=== PATIENT | female | born 1945 | race Caucasian/White ===

== ENCOUNTER 2018-05-19 06:29 | Emergency (ER) | payer MEDICARE, BC, SELFPAY ==
[2018-05-19 06:42] VITALS: BP 148/84; PULSE 73; RESP 16; TEMP 36.4; O2SAT 99; BMI 23.3
[2018-05-19 06:53] LABS: Bacteria Urine None Seen
[2018-05-19] MEDS: cephALEXin 250 MG CAPSULE 500 MG PO (07:00)
[2018-05-19 07:03] LABS: Culture Indicated Urine Specimen Cultured; RBC Urine 30-100/HPF (0-5/HPF); Squamous Epithelial Cell Urine 0-1 /HPF; WBC Urine 30-100/HPF (0-5/HPF)
--- NOTE | 2018-05-19 07:12 | ED_ITS ---
HPI - Female Genitourinary General Chief complaint: Urogenital-Female Stated complaint: UTI Time Seen by Provider: 05/19/18 06:35 Source: patient and family Mode of arrival: ambulatory Limitations: no limitations History of Present Illness HPI Narrative: 73-year-old female with history of UTI presents to the emergency department with chief complaint a few days of burning, frequency and urgency with urination, all symptoms consistent with prior urinary tract infections. She denies systemic findings such as fever, back pain or vomiting. She denies vaginal bleeding or discharge MD Complaint: dysuria and UTI Onset (ago): minute(s) Female Urogenital Radiation: Suprapubic Severity: mild Quality: Burning Duration: constant Exacerbating factors: urination Urinary symptoms: Difficulty Urinating, Dysuria, Foul Smelling Urine, Frequency , Hematuria and Urgency Related Data Home Medications Medication Instructions Recorded Confirmed AMINOBENZOIC ACID/BIOTIN/CA (#B 1 cap PO Q DAY #0 10/11/11 COMPLEX) BENZONATATE (TESSALON PERLES~) 100 mg PO PRN #0 10/11/11 CA PANTOTHENATE/FOLIC ACID/VIT 1 tab PO Q DAY #0 10/11/11 (MULTIVITAMIN) Hydrochlorothiazide/Triamter 1 cap PO Q DAY #0 10/11/11 (#DYAZIDE 25 MG-37.5 MG) LACTOBACILLUS ACIDOPHILUS 1 cap PO Q DAY #0 10/11/11 (#ACIDOPHILUS) TRIAMCINOLONE ACETONIDE (NASACORT 120 spray INTRANASAL BID #0 10/11/11 AQ) VITAMIN D (Vitamin D3) 1,000 unit PO QDAY #0 10/11/11 dicyclomine 20 mg PO QID PRN #0 10/11/11 levothyroxine [Synthroid] 0.175 mg PO Q DAY #0 10/11/11 lysine [L-Lysine] 500 mg PO Q DAY #0 10/11/11 omeprazole 40 mg PO BID #0 10/11/11 ranitidine HCl [Zantac] 300 mg PO HS #0 10/11/11 [PROBIOTICS] #0 04/23/17 Previous Rx's Medication Instructions Recorded nitrofurantoin monohyd/m-cryst 100 mg PO Q12H #14 bot 04/23/17 [Macrobid] phenazopyridine [Pyridium] 100 mg PO TID #10 tab 04/23/17 sulfamethoxazole-trimethoprim 1 tab PO BID #6 tab 04/26/17 estradiol 1 mg tablet 1 mg PO QDAY #90 tab 03/19/18 cephalexin [Keflex] 500 mg PO QID 14 Days #56 cap 05/19/18 Allergies Allergy/AdvReac Type Severity Reaction Status Date / Time codeine [CODEINE] Allergy Unknown Verified 05/19/18 06:42 Review of Systems Review of Systems All systems reviewed & are unremarkable except as noted in HPI and below Constitutional Denies chills, Denies fever(s), Denies lethargy and Denies weakness Eyes Denies change in vision, Denies eye discharge, Denies irritation and Denies loss of vision ENT Ears, Nose, Mouth, and Throat: Denies change in voice, Denies neck pain and Denies sore throat Cardiovascular Denies chest pain, Denies irregular heart rhythm, Denies lightheadedness, Denies palpitations, Denies dyspnea, Denies dyspnea on exertion and Denies orthopnea Respiratory Denies cough, Denies dyspnea, Denies dyspnea on exertion and Denies wheezing Gastrointestinal Gastrointestinal: Denies abdominal pain, Denies change in bowel habits, Denies diarrhea, Denies nausea and Denies vomiting Genitourinary Denies hematuria, Denies flank pain and Reports urinary urgency Musculoskeletal Denies neck pain Integumentary/Breasts Denies pruritus, Denies erythema, Denies rash and Denies wounds Neurologic Denies confusion, Denies loss of vision and Denies weakness Psychiatric Denies anxiety, Denies confusion, Denies depression, Denies homicidal ideation and Denies suicidal ideation Endocrine Denies palpitations Hematologic/Lymphatic Denies easy bruising Allergic/Immunologic Denies wheezing PFSH Surgical History History of bladder suspension procedure Status post colonoscopy (09/20/14) Status post vaginal hysterectomy Social History Smoking Status: Never smoker Exam Narrative Exam Narrative: GEN: AOx3 and in mild distress EYES: Pupils are equal, round, and reactive to light and accommodation. Extraoccular muscles are intact bilaterally. There is no subconjunctival hemorrhage or exudate. CHEST: Lungs are clear to auscultation bilaterally and free of wheezes, rales, or rhonchi. Heart rate is regular rhythm, there are no murmurs, clicks, rubs, or gallops. There is no chest wall tenderness. ABD: Abdomen is soft and nontender. There is no guarding or rebound. Bowel sounds are normal in all 4 quadrants. There is no mass or organomegaly. EXT: Full painless ROM of all extremities with no loss of sensation or strength. SKIN: Warm, pink, and dry. No erythema or rash Initial Vital Signs Initial Vital Signs: Vital Signs Temperature 97.6 F 05/19/18 06:42 Pulse Rate 73 05/19/18 06:42 Respiratory Rate 16 05/19/18 06:42 Blood Pressure 148/84 H 05/19/18 06:42 Pulse Oximetry 99 05/19/18 06:42 Course Orders Ordered: ED Orders 05/19/18 06:40 Urine Culture Stat Urine Microscopic Stat Discontinued Medications Cephalexin HCl (Keflex) 500 mg PO NOW ONE Stop: 05/19/18 06:57 Last Admin: 05/19/18 07:00 Dose: 500 mg Vital Signs - 8 hr 05/19/18 06:42 Temperature 97.6 F Pulse Rate 73 Respiratory Rate 16 Blood Pressure 148/84 H Pulse Oximetry 99 MDM - Female Genitourinary Lab Data Lab Results 05/19/18 Range/Units 06:40 Urine RBC 30-100/hpf H (0-5/HPF) Urine WBC 30-100/hpf H (0-5/HPF) Ur Squamous Epith Cells 0-1 /hpf Urine Bacteria None seen (None) Ur Culture Indicated? Specimen cultured Micro UA Comment Not Reportable Discharge Plan Departure Patient Disposition: Home Clinical Impression: Urinary tract infection Discharge Date/Time: 05/19/18 07:09 Instructions: DI for Urinary Tract Infection (UTI) Activity Restrictions/Additional Instructions: *You have been diagnosed with [acute urinary tract infection ] *What to do: *Take medications as directed: Your prescription has been electronically transmitted to [facility] at your request. Take your antibiotics for least 3-5 days but if her symptoms have completely improved at that point he did not need to continue *Follow up with your primary care provider in 2-3 days, call for an appointment. Let them know you were seen in the Emergency Department and that we ask that you be seen in follow up *Return to ER if you should have any new, worsening or concerning symptoms Prescriptions: New cephalexin [Keflex] 500 mg capsule 500 mg PO QID 14 Days Qty: 56 RF: 0 No Action omeprazole 40 MG capsule,delayed release(DR/EC) 40 mg PO BID Qty: 0 RF: 0 CA PANTOTHENATE/FOLIC ACID/VIT (MULTIVITAMIN) 1 tab PO Q DAY Qty: 0 RF: 0 AMINOBENZOIC ACID/BIOTIN/CA (#B COMPLEX) 1 cap PO Q DAY Qty: 0 RF: 0 lysine [L-Lysine] 500 MG tablet 500 mg PO Q DAY Qty: 0 RF: 0 LACTOBACILLUS ACIDOPHILUS (#ACIDOPHILUS) 1 cap PO Q DAY Qty: 0 RF: 0 levothyroxine [Synthroid] 175 MCG tablet 0.175 mg PO Q DAY Qty: 0 RF: 0 Hydrochlorothiazide/Triamter (#DYAZIDE 25 MG-37.5 MG) 1 cap PO Q DAY Qty: 0 RF: 0 dicyclomine 20 MG tablet 20 mg PO QID PRNQty: 0 RF: 0 TRIAMCINOLONE ACETONIDE (NASACORT AQ) 120 spray Intranasal BID Qty: 0 RF: 0 ranitidine HCl [Zantac] 150 MG tablet 300 mg PO HS Qty: 0 RF: 0 BENZONATATE (TESSALON PERLES~) 100 mg PO PRN Qty: 0 RF: 0 VITAMIN D (Vitamin D3) 1,000 unit PO QDAY Qty: 0 RF: 0 [PROBIOTICS] Qty: 0 RF: 0 phenazopyridine [Pyridium] 100 MG tablet 100 mg PO TID Qty: 10 RF: 0 nitrofurantoin monohyd/m-cryst [Macrobid] 100 MG capsule 100 mg PO Q12H Qty: 14 RF: 0 sulfamethoxazole-trimethoprim 800 MG/160 MG tablet 1 tab PO BID Qty: 6 RF: 0 estradiol 1 mg tablet 1 mg PO QDAY Qty: 90 RF: 0
== END 2018-05-19 07:09 | disposition home or self-care (01) ==
PROVIDERS: Emergency Provider Emergency Medicine
DX: N39.0 Urinary tract infection, site not specified (principal)
CPT/HCPCS: 81003; 81015; 87077; 87086; 87186; 99282; 99283

== ENCOUNTER → 2018-06-07 16:38 | Outpatient (CLI) | payer MEDICARE, BC, SELFPAY ==
[2018-06-07 17:41] LABS: Add Manual Diff / Slide Review NO; Basophils Percent Auto 0.6 % (0-2); Eosinophils Percent Auto 1.2 % (2-4); Hematocrit 48.8 % (36-46); Hemoglobin 16.7 g/dL (12.0-16.0); Lymphocytes Percent Auto 25.7 % (25-40); Mean Corpuscular HGB Conc 34.3 % (30-36); Mean Corpuscular Hemoglobin 33.9 PG (26-34); Monocytes Percent Auto 8.8 % (3-14); Neutrophils Absolute Auto 5100 /uL (3000-5900); Neutrophils Percent Auto 63.7 % (50-75); Platelet Count 216 X10^3/uL (150-400); Red Blood Cell Count 4.93 X10^6/uL (4.0-5.2); Red Cell Distribution Width 13.1 % (11.6-14.8); White Blood Cell Count 8.1 X10^3/uL (4.5-11.0)
== END ==
PROVIDERS: Referring Provider Specialist; Visit Provider Specialist
DX: B34.9 Viral infection, unspecified (principal)
CPT/HCPCS: 36415; 85025; 86788; 86789; 99214

== ENCOUNTER → 2018-06-11 14:55 | Outpatient (CLI) | payer MEDICARE, BC, SELFPAY ==
[2018-06-11 16:09] LABS: BUN Creatinine Ratio 28.2 (6-22); Blood Urea Nitrogen 31 mg/dL (7-17); Estimated Glomerular Filt Rate 48.7 mL/min (>60)
== END ==
PROVIDERS: Visit Provider Specialist
DX: B34.9 Viral infection, unspecified (principal)
CPT/HCPCS: 36415; 82565; 84520

== ENCOUNTER → 2018-06-14 11:01 | Outpatient (CLI) | payer MEDICARE, BC, SELFPAY ==
--- NOTE | 2018-06-14 11:03 | DI.MRI.S_ITS ---
PROCEDURE: MR HEAD/BRAIN WO/W CON INDICATIONS: [place] ENCEPHALITIS TECHNIQUE: Noncontrast axial T1 spin echo, axial T2 fast spin echo, sagittal and axial FLAIR, coronal T2 fast spin echo, axial gradient echo, axial diffusion and ADC through the brain. After the administration of contrast, axial and coronal T1 spin echo with fat saturation through the brain. COMPARISON: [facility], CT, CT BRAIN WO CON, 08/24/2016, 11:11. FINDINGS: Image quality: Excellent. CSF spaces: Basal cisterns are patent. No extra-axial fluid collections. Ventricles are normal in size and shape. Brain: No midline shift. No intracranial bleeds or masses. No abnormal intracranial enhancement. There is cerebral volume loss for age. There is periventricular white matter chronic small vessel ischemic change. The brainstem appears normal. Diffusion-weighted images demonstrate no acute ischemic insults. No chronic ischemic insults. Normal intravascular flow voids are present. 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 When discovered in isolation, this is considered to be a developmental variant of no clinical consequence. Skull and face: Calvarial marrow is normal in signal. Orbits appear normal. Sinuses: Sinuses and mastoids appear clear. IMPRESSION: No abnormal intracranial enhancement is seen to suggest encephalitis. 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 Dictated by: Jefry Wright M.D. on 06/14/2018 at 13:23 Approved by: Jefry Wright M.D. on 06/14/2018 at 13:32
== END ==
PROVIDERS: Visit Provider Specialist
DX: A92.31 West Nile virus infection with encephalitis (principal)
CPT/HCPCS: 70553; A9579

== ENCOUNTER 2022-06-15 10:50 | Emergency (ER) | payer MEDICARE, BC, SELFPAY ==
[2022-06-15] VITALS (13 sets, daily range): BP systolic 119–152; BP diastolic 62–91; PULSE 57–72; RESP 13–98; TEMP 36.6; O2SAT 96–99; BMI 21.6
--- NOTE | 2022-06-15 10:51 | ED_ITS ---
HPI - General Adult General Chief complaint: Nausea/Vomiting/Diarrhea Stated complaint: Nausea and Dizzy 2 days Time Seen by Provider: 06/15/22 10:50 History of Present Illness HPI narrative: 77-year-old woman with history of atrial fibrillation anticoagulated on apixaban, post Whipple scheduled for CT scans and lab work at [facility] tomorrow, hypothyroidism currently with significantly suppressed TSH, presents with a complaint of the low-grade headache for a couple of weeks that is been dramatically worsen the past 48 hours associated with significant nausea, vomiting unable to eat or drink, unable to tolerate any of her pills including metoprolol and Eliquis. She complains of body aches all over. States that her neck head and back all hurt and describe it as significant musculoskeletal pain. She wants at the headache is worse when she is walking and if she standing upright the neck pain and nausea are worse. She is not describing abdominal pain, palpitations, cough, diarrhea. She does incidentally note that she has fallen a couple of times over the last number of weeks and some of those did have an associated head injury for which she did not seek additional care. She has been feeling bad enough with the nausea and vomiting that she has significantly unsteady and it is unclear if that has gotten worse beyond just the acute illness portion. Related Data Home Medications Medication Instructions Recorded Confirmed AMINOBENZOIC ACID/BIOTIN/CA (#B 1 cap PO Q DAY ##0 10/11/11 11/10/21 COMPLEX) CA PANTOTHENATE/FOLIC ACID/VIT 1 tab PO Q DAY ##0 10/11/11 11/10/21 (MULTIVITAMIN) Hydrochlorothiazide/Triamter 1 cap PO Q DAY ##0 10/11/11 11/10/21 (#DYAZIDE 25 MG-37.5 MG) TRIAMCINOLONE ACETONIDE (NASACORT 120 spray intranasal BID ##0 10/11/11 11/10/21 AQ) VITAMIN D (Vitamin D3) 1,000 unit PO QDAY ##0 10/11/11 11/10/21 dicyclomine 20 mg tablet 20 mg PO QID PRN ##0 10/11/11 11/10/21 lysine 500 mg tablet (L-Lysine) 500 mg PO Q DAY ##0 10/11/11 11/10/21 mecobalamin (vitamin B12) 5,000 mcg PO 10/24/18 02/16/22 mcg disintegrating tablet benzonatate 100 mg capsule 100 mg PO BID PRN 08/19/19 11/10/21 (Tessalon Perles) [id number] See Rx Instructions PO .COMPLEX 08/19/19 11/10/21 [Pancreatic Enzyme] pantoprazole PO 08/19/19 11/10/21 prochlorperazine Edisylate PO 08/19/19 11/10/21 [Compazine] levothyroxine 175 mcg tablet 200 mcg PO Q DAY #0 tabs 09/07/20 11/10/21 (Synthroid) alendronate [Fosamax] PO 11/10/21 11/10/21 apixaban 5 mg tablet (Eliquis) 5 mg PO BID 11/10/21 11/10/21 duloxetine 60 mg capsule,delayed 60 mg PO DAILY 11/10/21 11/10/21 release gabapentin 400 mg capsule 400 mg PO DAILY 11/10/21 11/10/21 metoprolol succinate 25 mg 12.5 mg PO DAILY 11/10/21 11/10/21 tablet,extended release 24 hr Previous Rx's Medication Instructions Recorded estradiol 1 mg tablet See Rx Instructions .Route 09/13/21 .COMPLEX #90 tabs estradiol 0.01% (0.1 mg/gram) 1 g vaginal 2XW Vaginal atrophy 11/10/21 vaginal cream #42.5 grams ondansetron 4 mg disintegrating 4 mg PO Q8H PRN nausea and 06/15/22 tablet vomiting #20 tabs Allergies Allergy/AdvReac Type Severity Reaction Status Date / Time codeine [CODEINE] Allergy Unknown Verified 11/10/21 11:24 Review of Systems Review of Systems Narrative: Remainder of complete review of systems is otherwise unremarkable except for that included in the HPI. Patient History Medical History (Updated 06/15/22 @ 16:41 by Rajwinder Mcleod MD) Atrial fibrillation Pancreatic cancer (~08/2018) Surgical History History of bladder suspension procedure Status post colonoscopy (09/20/14) Status post vaginal hysterectomy (~1994) Social History Smoking Status: Never smoker Smoking Status: Never smoker alcohol intake frequency: a few times a week Substance Use Type: does not use Exam Initial Vital Signs Initial Vital Signs: Vital Signs Temperature 97.8 F 06/15/22 11:03 Pulse Rate 66 06/15/22 11:03 Respiratory Rate 16 06/15/22 11:03 Blood Pressure 152/74 H 06/15/22 11:03 Pulse Oximetry 97 06/15/22 11:03 Oxygen Delivery Method 06/15/22 11:03 General: Pale appearing, in mild distress. Able to give a complete and coherent history. Well-nourished well-developed HEENT: Moist mucous membranes, normal sclera with reactive pupils, Neck: Mild JVD, supple with midline cervical spine tenderness to palpation and bilateral muscle spasm into the trapezius muscles Respiratory: Lungs are clear to auscultation, no wheezing no rales no rhonchi. Full and symmetrical air movement Cardiac: Regular rate and rhythm no murmurs no bruits Abdomen: Soft, diffusely tender without rebound, good bowel tones, no flank pain Skin: Warm and dry, no rashes Neurologic: Grossly neurologically intact with no obvious asymmetries or abnormalities Extremities: No trauma, well perfused Psych: Cooperative, appropriate insight and affect Course Orders Ordered: ED Orders 06/15/22 10:55 CEA [Carcinoembryonic Antigen] Stat Cancer (Carbohydrate) Ag 19-9 Stat Complete Blood Count AUTO DIFF Stat Comprehensive Metabolic Panel Stat Lipase Stat 06/15/22 11:53 EKG-12 Lead Stat 06/15/22 12:11 CT cervical spine wo con Stat CT chest w con Stat CT head/brain wo con Stat Vital Signs Vital signs: Vital Signs - 8 hr 06/15/22 11:03 06/15/22 12:37 06/15/22 12:35 Temperature 97.8 F Pulse Rate 66 62 62 Respiratory Rate 16 98 H 17 Blood Pressure 152/74 H 147/67 H Pulse Oximetry 97 98 97 Oxygen Delivery Method Room Air Room Air 06/15/22 13:00 06/15/22 13:00 06/15/22 13:30 Temperature Pulse Rate 57 L 72 Respiratory Rate 15 27 H Blood Pressure 151/71 H Pulse Oximetry 98 96 Oxygen Delivery Method 06/15/22 13:31 06/15/22 13:31 06/15/22 14:00 Temperature Pulse Rate 70 Respiratory Rate 29 H Blood Pressure 119/63 139/63 Pulse Oximetry 96 Oxygen Delivery Method 06/15/22 14:00 06/15/22 14:30 06/15/22 14:30 Temperature Pulse Rate 62 63 Respiratory Rate 16 13 Blood Pressure 127/62 Pulse Oximetry 98 97 Oxygen Delivery Method 06/15/22 15:00 06/15/22 15:00 06/15/22 15:30 Temperature Pulse Rate 61 Respiratory Rate 16 Blood Pressure 138/65 136/91 H Pulse Oximetry 98 Oxygen Delivery Method 06/15/22 15:30 Temperature Pulse Rate 61 Respiratory Rate Blood Pressure Pulse Oximetry 98 Oxygen Delivery Method Medical Decision Making Lab Data Result diagrams: 06/15/22 10:55 06/15/22 10:55 Labs: Lab Results 06/15/22 06/15/22 06/15/22 Range/Units 10:55 10:55 10:55 WBC 7.6 (4.5-11.0) X10^3/uL RBC 4.43 (4.0-5.2) X10^6/uL Hgb 15.3 (12.0-16.0) g/dL Hct 45.2 (36-46) % MCV 102.1 H (80-100) fL MCH 34.6 H (26-34) PG MCHC 33.8 (30-36) % RDW 14.4 (11.6-14.8) % Plt Count 136 L (150-400) X10^3/uL Neut % (Auto) 60.3 (50-75) % Lymph % (Auto) 28.6 (25-40) % Mora % (Auto) 7.9 (3-14) % Eos % (Auto) 2.7 (2-4) % Baso % (Auto) 0.5 (0-2) % Neut # (Auto) 4600 (8479-5197) /uL Lymph # (Auto) 2200 (5193-7726) /uL Mora # (Auto) 600 (0-900) /uL Eos # (Auto) 200 (0-450) /uL Baso # (Auto) 0 (0-100) /uL Sodium 138 (137-145) mmol/L Potassium 4.1 (3.4-5.1) mmol/L Chloride 103 (98-107) mmol/L Carbon Dioxide 26 (22-32) mmol/L BUN 14 (7-17) mg/dL Creatinine 0.96 (0.52-1.04) mg/dL Estimated GFR > 60 (>60) mL/min BUN/Creatinine Ratio 14.6 (6-22) Glucose 124 H (80-110) mg/dL Calcium 9.2 (8.4-10.2) mg/dL Total Bilirubin 0.8 (0.2-1.3) mg/dL AST 56 H (14-36) IU/L ALT 40 H (<35) IU/L Alkaline Phosphatase 100 (38-126) U/L Total Protein 8.0 (6.3-8.2) g/dL Albumin 4.6 (3.5-5.0) g/dL Globulin 3.4 (1.7-4.1) g/dL Albumin/Globulin Ratio 1.4 (1.0-2.8) Lipase 14 L (23-300) U/L Carcinoembryonic Ag 7.3 H (0.1-3.0) ng/mL Urine Dip Bedside Urine Glucose Negative Bedside Urine Bilirubin - Negative Bedside Urine Ketone - Negative Urine Specific [place] 1.010 Bedside Urine Occult Blood - Negative Bedside Urine pH 6.0 Bedside Urine Protein - Negative Bedside Urine Urobilinogen - Negative Bedside Urine Nitrite - Negative Bedside Urine Leukocytes - Negative Esterase Point of care testing: Urine Dip Bedside Urine Glucose Negative Bedside Urine Bilirubin - Negative Bedside Urine Ketone - Negative Urine Specific [place] 1.010 Bedside Urine Occult Blood - Negative Bedside Urine pH 6.0 Bedside Urine Protein - Negative Bedside Urine Urobilinogen - Negative Bedside Urine Nitrite - Negative Bedside Urine Leukocytes - Negative Esterase Imaging Data CT scan - head: Radiologist's Impression: FINDINGS:? Image quality:? Excellent.? ? CSF spaces:? Basal cisterns are patent.? No extra-axial fluid collections.? Ventricles are normal in size and shape.? 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 ? Brain:? No midline shift.? No intracranial masses or hemorrhage.? Judge-white matter interface is normal.? ? Skull and face:? Calvarium and visualized facial bones are intact, without suspicious lesions.? ? Sinuses:? Left sphenoid sinus opacification.? Prior left maxillary sinus surgery ? IMPRESSION:? ? Atrophy and chronic ischemic change without intracranial hemorrhage or mass effect ? Left sphenoid mucosal sinus disease ? ? Approved by: Jeffry Cha M.D. on 06/15/2022 at 12:05? CT scan - chest: Radiologist's Impression: INDINGS:? Image quality:? Excellent.? ? Lungs and pleura:? No acute air space opacities.? No pleural effusions or pneumothorax.? Central and peripheral airways are patent and normal in caliber.? ? Mediastinum:? Heart size is normal.? No pericardial effusion.? Pretracheal node measures 1.4 x 1.0 cm? Thoracic aorta and central pulmonary arteries are normal in size.? Esophagus is normal in caliber.? No hiatal hernia.? ? Bones and chest wall:? No suspicious bony lesions.? No vertebral body compression fractures.? No axillary or supraclavicular adenopathy by size criteria.? Thyroid gland unremarkable.? Right-sided Port-A-Cath in place .? And convex right thoracic scoliosis ? Abdomen:? Visualized upper abdominal solid organs appear normal.? Upper abdominal bowel loops are normal in caliber.? ? IMPRESSION:? ? No CT evidence pulmonary nodules small pretracheal mediastinal node measures 1 cm in short axis ? Unremarkable CT chest without fracture or evidence of traumatic injury ? ? ? Approved by: Jeffry Cha M.D. on 06/15/2022 at 12:20? CT - cervical spine: Radiologist's Impression: FINDINGS:? Image quality:? Excellent.? ? Bones:? No fractures or dislocations.? Visualized superior ribs are intact.? Di sc space narrowing and uncovertebral joint arthropathy noted particularly at C4-5 and C5- 6 with grade 1 anterior degenerative spondylolisthesis at C4-5.? Craniovertebral relationships are normal. ? Soft tissues:? Prevertebral soft tissues are normal in thickness.? No paravertebral hematomas.? No apical pneumothoraces.? ? ? IMPRESSION:? ? Degenerative disc disease and arthropathy without fracture or traumatic malalignment ? Approved by: Jeffry Cha M.D. on 06/15/2022 at 12:07? 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 Sutherland at [facility] presents with severe headache this been present for 2 days. She does not have a history of migraine headache. She notes some vomiting with this but is not having acute visual changes, neurologic findings or deficits. There has been no fever. CT scan of the head does not show any intracranial hemorrhage. A L of fluid is significantly helped with the overall pain will also add IV Reglan Benadryl and oral Tylenol. She is scheduled to have an appointment with blood work and CT scan tomorrow in [place]. Blood work and CT scan were done here in [place]. The CT scan was electronically transmitted to [facility] and the patient is given hard copies of the blood work as well as CT scan read. At time of discharge she is feeling significantly better, there is no evidence of intracranial masses or acute meningitis. She is safe for discharge home. Will ask her to continue to follow-up with her gastroenterology surgeon at [facility]. Discharge Plan Departure Patient Disposition: Home Clinical Impression: Headache Qualifiers: Headache type: unspecified Headache chronicity pattern: acute headache Intractability: not intractable Qualified Code(s): R51.9 - Headache, unspecified Instructions: DI for Headache Activity Restrictions/Additional Instructions: Thank you for coming in today The CT scan of your brain and cervical spine did not show life-threatening pathology. Specifically no metastatic lesions and no bleeding inside your brain. To save you the drive To [place] tomorrow, we went ahead and ordered the labs and CT scan of the chest that Dr. Deras had ordered for tomorrow. I have given you copies of all of the blood work The chemistry and a CBC panels are reassuring. The CEA test is elevated at 7.3, I do not have the comparison that is available at [facility] to know if this is rising or falling. The CA 19 9 antigen has been ordered and is not yet available. The CT scan of your chest with contrast has been at least electronically transmitted to [facility] so Dr. Deras can actually reviewed the scan himself. I have also given you the radiologist interpretation of the scan. In the meantime, we use of L of fluid, IV Reglan and Benadryl as well as oral Tylenol to help with your headache. I have given you a prescription of Zofran to help with nausea should you need. The Zofran prescription was electronically transmitted to [facility] here in and [place] If you find that you are getting worse or develop any new symptoms, please feel free to return to the emergency department for further evaluation. Prescriptions: New ondansetron 4 mg tablet,disintegrating 4 mg PO Q8H PRN (Reason: nausea and vomiting) Qty: 20 0RF No Action CA PANTOTHENATE/FOLIC ACID/VIT (MULTIVITAMIN) 1 tab PO Q DAY Qty: 0 AMINOBENZOIC ACID/BIOTIN/CA (#B COMPLEX) 1 cap PO Q DAY Qty: 0 lysine [L-Lysine] 500 MG tablet 500 mg PO Q DAY Qty: 0 Hydrochlorothiazide/Triamter (#DYAZIDE 25 MG-37.5 MG) 1 cap PO Q DAY Qty: 0 dicyclomine 20 MG tablet 20 mg PO QID PRNQty: 0 TRIAMCINOLONE ACETONIDE (NASACORT AQ) 120 spray Intranasal BID Qty: 0 VITAMIN D (Vitamin D3) 1,000 unit PO QDAY Qty: 0 levothyroxine [Synthroid] 175 mcg tablet 200 mcg PO Q DAY Qty: 0 estradiol 1 mg tablet See Rx Instructions .ROUTE .COMPLEX Qty: 90 3RF Dose Instruction: Take one tablet by mouth every day for hormone replacement therapy. Rx Instructions: Take one tablet by mouth every day for hormone replacement therapy. gabapentin 400 mg capsule 400 mg PO DAILY duloxetine 60 mg capsule,delayed release(DR/EC) 60 mg PO DAILY metoprolol succinate 25 mg tablet extended release 24 hr 12.5 mg PO DAILY Eliquis 5 mg tablet 5 mg PO BID alendronate [Fosamax] PO estradiol 0.01 % (0.1 mg/gram) cream 1 g vaginal 2XW Qty: 42.5 1RF Rx Instructions: Apply externally nightly for 2 weeks then twice weekly pantoprazole PO [id number] See Rx Instructions PO .COMPLEX Rx Instructions: takes 2 with every meal, 1 with every snack PO ; prochlorperazine Edisylate PO benzonatate [Tessalon Perles] 100 mg capsule 100 mg PO BID PRN mecobalamin (vitamin B12) 5,000 mcg tablet,disintegrating PO Referrals: Ehsan Storm MD [Primary Care Provider] -
--- NOTE | 2022-06-15 11:17 | PC.NURSE ---
pt c/o of dizziness with headache. pt comfortable with bed flat.
[2022-06-15 12:00] LABS: Add Manual Diff / Slide Review NO; Basophils Absolute Auto 0 /uL (0-100); Basophils Percent Auto 0.5 % (0-2); Eosinophils Absolute Auto 200 /uL (0-450); Eosinophils Percent Auto 2.7 % (2-4); Hematocrit 45.2 % (36-46); Hemoglobin 15.3 g/dL (12.0-16.0); Lymphocytes Absolute Auto 2200 /uL (1100-4500); Lymphocytes Percent Auto 28.6 % (25-40); Mean Corpuscular HGB Conc 33.8 % (30-36); Mean Corpuscular Hemoglobin 34.6 PG (26-34); Mean Corpuscular Volume 102.1 fL (80-100); Monocytes Absolute Auto 600 /uL (0-900); Monocytes Percent Auto 7.9 % (3-14); Neutrophils Absolute Auto 4600 /uL (1500-7000); Neutrophils Percent Auto 60.3 % (50-75); Platelet Count 136 X10^3/uL (150-400); Red Blood Cell Count 4.43 X10^6/uL (4.0-5.2); Red Cell Distribution Width 14.4 % (11.6-14.8); White Blood Cell Count 7.6 X10^3/uL (4.5-11.0)
[2022-06-15 12:05] LABS: Alanine Aminotransferase 40 IU/L (<35); Albumin 4.6 g/dL (3.5-5.0); Albumin Globulin Ratio 1.4 (1.0-2.8); Alkaline Phosphatase 100 U/L (38-126); Aspartate Aminotransferase 56 IU/L (14-36); BUN Creatinine Ratio 14.6 (6-22); Bilirubin Total 0.8 mg/dL (0.2-1.3); Blood Urea Nitrogen 14 mg/dL (7-17); Calcium 9.2 mg/dL (8.4-10.2); Carbon Dioxide 26 mmol/L (22-32); Chloride 103 mmol/L (98-107); Estimated Glomerular Filt Rate > 60 mL/min (>60); Globulin 3.4 g/dL (1.7-4.1); Glucose 124 mg/dL (80-110); HEMOLYSIS 30 (0-50); Lipase 14 U/L (23-300); Potassium 4.1 mmol/L (3.4-5.1); Sodium 138 mmol/L (137-145)
--- NOTE | 2022-06-15 12:11 | DI.CT.S_ITS ---
PROCEDURE: CT CERVICAL SPINE WO CON INDICATIONS: fall, midline cervical tenderness TECHNIQUE: Noncontrast 3 mm thick sections acquired from the skull base to the T4 level. Sagittal and coronal reformats were then constructed. For radiation dose reduction, the following was used: automated exposure control, adjustment of mA and/or kV according to patient size. COMPARISON: None. FINDINGS: Image quality: Excellent. Bones: No fractures or dislocations. Visualized superior ribs are intact. Disc space narrowing and uncovertebral joint arthropathy noted particularly at C4-5 and C5-6 with grade 1 anterior degenerative spondylolisthesis at C4-5. Craniovertebral relationships are normal. Soft tissues: Prevertebral soft tissues are normal in thickness. No paravertebral hematomas. No apical pneumothoraces. IMPRESSION: Degenerative disc disease and arthropathy without fracture or traumatic malalignment Approved by: Jeffry Cha M.D. on 06/15/2022 at 12:07
--- NOTE | 2022-06-15 12:11 | DI.CT.S_ITS ---
PROCEDURE: CT HEAD/BRAIN WO CON INDICATIONS: fall, nausea vomiting, on apixaban TECHNIQUE: Noncontrast 5 mm thick angled axial sections acquired from the foramen magnum to the vertex, with coronal and sagittal reformats. For radiation dose reduction, the following was used: automated exposure control, adjustment of mA and/or kV according to patient size. COMPARISON: [facility], CT, CT HEAD WITHOUT CONTRAST, 02/23/2022, 13:01. FINDINGS: Image quality: Excellent. CSF spaces: Basal cisterns are patent. No extra-axial fluid collections. Ventricles are normal in size and shape. 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 Brain: No midline shift. No intracranial masses or hemorrhage. Judge-white matter interface is normal. Skull and face: Calvarium and visualized facial bones are intact, without suspicious lesions. Sinuses: Left sphenoid sinus opacification. Prior left maxillary sinus surgery IMPRESSION: Atrophy and chronic ischemic change without intracranial hemorrhage or mass effect Left sphenoid mucosal sinus disease Approved by: Jeffry Cha M.D. on 06/15/2022 at 12:05
--- NOTE | 2022-06-15 12:11 | DI.CT.S_ITS ---
PROCEDURE: CT CHEST W CON INDICATIONS: pulmonary nodules TECHNIQUE: After the administration of intravenous contrast, 5 mm thick sections acquired from the pulmonary apices to the posterior costophrenic angles. 1 mm axial lung, 5 mm thick coronal and sagittal reformats and 7 mm axial MIP were acquired. For radiation dose reduction, the following was used: automated exposure control, adjustment of mA and/or kV according to patient size. COMPARISON: None. FINDINGS: Image quality: Excellent. Lungs and pleura: No acute air space opacities. No pleural effusions or pneumothorax. Central and peripheral airways are patent and normal in caliber. Mediastinum: Heart size is normal. No pericardial effusion. Pretracheal node measures 1.4 x 1.0 cm Thoracic aorta and central pulmonary arteries are normal in size. Esophagus is normal in caliber. No hiatal hernia. Bones and chest wall: No suspicious bony lesions. No vertebral body compression fractures. No axillary or supraclavicular adenopathy by size criteria. Thyroid gland unremarkable. Right-sided Port-A-Cath in place . And convex right thoracic scoliosis Abdomen: Visualized upper abdominal solid organs appear normal. Upper abdominal bowel loops are normal in caliber. IMPRESSION: No CT evidence pulmonary nodules small pretracheal mediastinal node measures 1 cm in short axis Unremarkable CT chest without fracture or evidence of traumatic injury Approved by: Jeffry Cha M.D. on 06/15/2022 at 12:20
[2022-06-15 13:04] LABS: Carcinoembryonic Antigen 7.3 ng/mL (0.1-3.0)
[2022-06-15] MEDS: diphenhydrAMINE 50 MG/ML VIAL 25 MG IV (16:43)
[2022-06-15] MEDS: ACETAMINOPHEN 325 MG TABLET 975 MG PO (16:43)
[2022-06-15] MEDS: METOCLOPRAMIDE 10 MG/2 ML INJ 5 MG IV (16:44)
[2022-06-16 08:40] LABS: Cancer (Carbohydrate) Ag 19-9 < 2 U/mL (0-35)
== END 2022-06-15 17:31 | disposition home or self-care (01) ==
PROVIDERS: Emergency Provider Emergency Medicine; PCP Family Medicine
DX: R51.9 Headache, unspecified (principal); R11.2 Nausea with vomiting, unspecified; Z79.01 Long term (current) use of anticoagulants; R03.0 Elevated blood-pressure reading, without diagnosis of hypertension; I49.3 Ventricular premature depolarization
CPT/HCPCS: 36415; 70450; 71260; 72125; 80053; 81003; 82378; 83690; 85025; 86301; 93005; 93010; 96374; 96375; 99284; J1200; J2765; Q9967

== ENCOUNTER 2022-12-19 16:45 | Emergency (ER) | payer MEDICARE, BC, SELFPAY ==
[2022-12-19 16:41] VITALS: PULSE 91; O2SAT 95
[2022-12-19 16:45] VITALS: TEMP 36.6; BMI 23.0
--- NOTE | 2022-12-19 17:31 | DI.RAD.S_ITS ---
PROCEDURE: XR RIBS RT MIN 3V W CXR 1V INDICATIONS: fall. R posterior rib pain TECHNIQUE: Two views of the right ribs were acquired, along with a single view chest. COMPARISON: None. FINDINGS: Surgical changes and devices: Right chest MediPort. Cholecystectomy clips. Bones and chest wall: Minimally displaced right lateral 9th rib fracture minimally displaced right 8th rib fracture and questionable nondisplaced 7th rib fracture. Mild thoracolumbar scoliosis. No subcutaneous emphysema. Overlying soft tissues are normal.. Lungs and pleura: No pleural effusions or pneumothorax. Lungs appear clear. Mediastinum: Mediastinal contours appear normal. Heart size is normal. IMPRESSION: 1. Right lateral 8th and 9th rib fractures and possible nondisplaced right 7th fracture. 2. No radiographic evidence of underlying chest trauma. Dictated by: Sandy Martino M.D. on 12/19/2022 at 18:53 Approved by: Sandy Martino M.D. on 12/19/2022 at 18:55
--- NOTE | 2022-12-19 18:27 | ED.FALL ---
HPI - Fall <Sujit Howard PA-C - Last Filed: 12/19/22 20:35> General Chief Complaint: Fall Stated Complaint: GLF Time Seen by Provider: 12/19/22 17:48 Source: EMS Mode of arrival: EMS History of Present Illness HPI Narrative: This is a 77-year-old female presents to the emergency department due to tripping and falling due secondary to her peripheral neuropathy and landing on her right ribs. She denies any upper extremity pain, hip pain, head pain, neck pain. She did not hit her head or lose consciousness. Patient is taking apixaban b.i.d. that she is been taking as prescribed. States she is complaining primarily of right rib pain. Denies any shortness of breath or any other concerning signs or symptoms. Related Data Home Medications Medication Instructions Recorded Confirmed AMINOBENZOIC ACID/BIOTIN/CA (#B 1 cap PO Q DAY ##0 10/11/11 11/10/21 COMPLEX) CA PANTOTHENATE/FOLIC ACID/VIT 1 tab PO Q DAY ##0 10/11/11 11/10/21 (MULTIVITAMIN) Hydrochlorothiazide/Triamter 1 cap PO Q DAY ##0 10/11/11 11/10/21 (#DYAZIDE 25 MG-37.5 MG) TRIAMCINOLONE ACETONIDE (NASACORT 120 spray intranasal BID ##0 10/11/11 11/10/21 AQ) VITAMIN D (Vitamin D3) 1,000 unit PO QDAY ##0 10/11/11 11/10/21 dicyclomine 20 mg tablet 20 mg PO QID PRN ##0 10/11/11 11/10/21 lysine 500 mg tablet (L-Lysine) 500 mg PO Q DAY ##0 10/11/11 11/10/21 mecobalamin (vitamin B12) 5,000 mcg PO 07/18/18 11/10/21 mcg disintegrating tablet benzonatate 100 mg capsule 100 mg PO BID PRN 08/19/19 11/10/21 (Mimi [place]) [id number] See Rx Instructions PO .COMPLEX 08/19/19 11/10/21 [Pancreatic Enzyme] pantoprazole PO 08/19/19 11/10/21 prochlorperazine Edisylate PO 08/19/19 11/10/21 [Compazine] levothyroxine 175 mcg tablet 200 mcg PO Q DAY #0 tabs 09/07/20 11/10/21 (Synthroid) alendronate [Fosamax] PO 11/10/21 11/10/21 apixaban 5 mg tablet (Eliquis) 5 mg PO BID 11/10/21 11/10/21 duloxetine 60 mg capsule,delayed 60 mg PO DAILY 11/10/21 11/10/21 release gabapentin 400 mg capsule 400 mg PO DAILY 11/10/21 11/10/21 metoprolol succinate 25 mg 12.5 mg PO DAILY 11/10/21 11/10/21 tablet,extended release 24 hr Previous Rx's Medication Instructions Recorded estradiol 1 mg tablet See Rx Instructions .Route 09/13/21 .COMPLEX #90 tabs estradiol 0.01% (0.1 mg/gram) 1 g vaginal 2XW Vaginal atrophy 11/10/21 vaginal cream #42.5 grams ondansetron 4 mg disintegrating 4 mg PO Q8H PRN nausea and 06/15/22 tablet vomiting #20 tabs oxycodone 5 mg capsule 5 mg PO BEDTIME PRN pain rib 12/19/22 fracture #14 caps Allergies Allergy/AdvReac Type Severity Reaction Status Date / Time codeine [CODEINE] Allergy Unknown Verified 11/10/21 11:24 Review of Systems <Sujit Howard PA-C - Last Filed: 12/19/22 20:35> Review of Systems Narrative: GENERAL: Denies chills, fatigue, malaise, fever, sweats. HEENT: Denies sinus pain, ear pain, sore throat, difficulty swallowing, dizziness. RESPIRATORY: Denies dyspnea, cough, wheezing, hemoptysis, sputum. CARDIOVASCULAR: Reports right rib pain GASTROINTESTINAL: Denies nausea, vomiting, abdominal pain, diarrhea, constipation, melena. : Denies dysuria, frequency, incontinence, hematuria, urinary retention. MUSCULOSKELETAL: denies weakness, joint pain, or bony pain SKIN: Denies rash, skin lesions, or other NEUROLOGIC: Denies weakness, headache, numbness, change in speech, confusion, seizures, incoordination. PSYCHIATRIC: No concerning psychosocial issues. 12 point review of systems is negative except for those stated above Patient History <Sujit Howard PA-C - Last Filed: 12/19/22 20:35> Medical History (Updated 12/19/22 @ 19:50 by Sujit Howard PA-C) Atrial fibrillation Pancreatic cancer (~08/2018) Surgical History History of bladder suspension procedure Status post colonoscopy (09/20/14) Status post vaginal hysterectomy (~1994) Social History Smoking Status: Never smoker Smoking Status: Never smoker alcohol intake frequency: a few times a week Substance Use Type: does not use Exam <Sujit Howard PA-C - Last Filed: 12/19/22 20:35> Narrative Exam Narrative: GENERAL: Well-developed patient, in mild distress. HEAD: Atraumatic. Normocephalic. EYES: Pupils equal round and reactive. Extraocular motions intact. No scleral icterus. No injection or drainage. ENT: Nose without bleeding, purulent drainage. Throat without erythema, tonsillar hypertrophy or exudate. Airway patent. NECK: Trachea midline. Non tender CARDIOVASCULAR: Regular rate and rhythm without murmurs, gallops, or rubs. RESPIRATORY: Significant tenderness to palpation to the right ribs as well as lumbar and thoracic spine. Clear to auscultation. Breath sounds equal bilaterally. No wheezes, rales, or rhonchi. GASTROINTESTINAL: Abdomen soft, non-tender, nondistended. EXTREMITIES: No edema or joint tenderness. NEURO: AOx3. SKIN: No rash or erythema of visible areas Initial Vital Signs Initial Vital Signs: Vital Signs Pulse Rate 91 H 12/19/22 16:41 Pulse Oximetry 95 12/19/22 16:41 <Isidro Marie DO - Last Filed: 12/19/22 22:46> Initial Vital Signs Initial Vital Signs: Vital Signs Pulse Rate 91 H 12/19/22 16:41 Pulse Oximetry 95 12/19/22 16:41 Course <Sujit Howard PA-C - Last Filed: 12/19/22 20:35> Orders Ordered: ED Orders 12/19/22 17:31 XR ribs RT min 3V w CXR1V Stat 12/19/22 18:26 XR lumbar spine 2-3V Stat XR thoracic spine 3V Stat 12/19/22 19:35 RT Consult Eval and Treat NOW Vital Signs Vital signs: Vital Signs - 8 hr 12/19/22 16:45 12/19/22 16:41 12/19/22 18:30 Temperature 98 F Pulse Rate 91 H 78 Blood Pressure Pulse Oximetry 95 99 Oxygen Delivery Method Oxygen Flow Rate Fraction of Inspired Oxygen 12/19/22 18:45 12/19/22 18:45 12/19/22 19:00 Temperature Pulse Rate 54 L 79 Blood Pressure 153/69 H Pulse Oximetry 97 97 Oxygen Delivery Method Oxygen Flow Rate Fraction of Inspired Oxygen 12/19/22 19:01 12/19/22 19:01 12/19/22 19:52 Temperature Pulse Rate 89 Blood Pressure 157/72 H Pulse Oximetry 97 Oxygen Delivery Method Room Air Oxygen Flow Rate 0 Fraction of Inspired Oxygen 21 <Isidro Marie DO - Last Filed: 12/19/22 22:46> Orders Ordered: ED Orders 12/19/22 17:31 XR ribs RT min 3V w CXR1V Stat 12/19/22 18:26 XR lumbar spine 2-3V Stat XR thoracic spine 3V Stat 12/19/22 19:35 RT Consult Eval and Treat NOW Vital Signs Vital signs: Vital Signs - 8 hr 12/19/22 16:45 12/19/22 16:41 12/19/22 18:30 Temperature 98 F Pulse Rate 91 H 78 Blood Pressure Pulse Oximetry 95 99 Oxygen Delivery Method Oxygen Flow Rate Fraction of Inspired Oxygen 12/19/22 18:45 12/19/22 18:45 12/19/22 19:00 Temperature Pulse Rate 54 L 79 Blood Pressure 153/69 H Pulse Oximetry 97 97 Oxygen Delivery Method Oxygen Flow Rate Fraction of Inspired Oxygen 12/19/22 19:01 12/19/22 19:01 12/19/22 19:52 Temperature Pulse Rate 89 Blood Pressure 157/72 H Pulse Oximetry 97 Oxygen Delivery Method Room Air Oxygen Flow Rate 0 Fraction of Inspired Oxygen 21 MDM - Fall <Sujit Howard PA-C - Last Filed: 12/19/22 20:35> Imaging Data rib xr: Radiologist's Impression: [address] [address] XRay Report Signed Patient: Maggy Tucker MR#: [id number] : 1945 Acct:[id number] Age/Sex: 77 / F Date of Service: 12/19/22 Loc: ED Accession Number: [id number] ?? Procedure: XR ribs RT min 3V w CXR1V Ordering Provider: Amara Stephenson D.O. PROCEDURE:? XR RIBS RT MIN 3V W CXR 1V ? INDICATIONS:? fall. R posterior rib pain ? TECHNIQUE:? Two views of the right ribs were acquired, along with a single view chest.? ? COMPARISON:? None. ? FINDINGS:? ? Surgical changes and devices:? Right chest MediPort.? Cholecystectomy clips. ? Bones and chest wall:? Minimally displaced right lateral 9th rib fracture minimally displaced right 8th rib fracture and questionable nondisplaced 7th rib fracture.? Mild thoracolumbar scoliosis.? No subcutaneous emphysema.? Overlying soft tissues are normal.. ? Lungs and pleura:? No pleural effusions or pneumothorax.? Lungs appear clear.? ? Mediastinum:? Mediastinal contours appear normal.? Heart size is normal.? ? IMPRESSION:? ? 1. Right lateral 8th and 9th rib fractures and possible nondisplaced right 7th fracture. ? 2. No radiographic evidence of underlying chest trauma.? ? ? Dictated by: Sandy Martino M.D. on 12/19/2022 at 18:53 ? ? Approved by: Sandy Martino M.D. on 12/19/2022 at 18:55 ? Thoracic XR : Radiologist's Impression: [address] [address]RLfm ReportSigned Patient: Maggy Tucker KMR#: [id number]: 5Acct:[id number]/Sex: 77 / FDate of Service: 12/19/22Loc: EDAccession Number: [id number] Procedure: XR thoracic spine 3V Ordering Provider: Sujit Howard P.A-C PROCEDURE: XR THORACIC SPINE 3V INDICATIONS: Thoracic pain TECHNIQUE: 3 views of the thoracic spine were acquired. COMPARISON: [facility], CT, CT CHEST W CON, 06/15/2022, 12:23. [facility], CR, XR RIBS RT MIN 3V W CXR 1V, 12/19/2022, 17:43. [facility], CR, XR LUMBAR SPINE 2-3V, 12/19/2022, 18:24. FINDINGS: Bones: No fractures or dislocations. No suspicious bony lesions. 12 pairs of ribs are noted, and appear intact where visualized. S-shaped scoliotic curvature is seen. Age-appropriate bony degenerative changes are seen. Soft tissues: No paravertebral stripe thickening. There is a right-sided chest port. Cholecystectomy clips are seen. IMPRESSION: No acute plain film abnormality is seen. S shaped scoliotic curvature and generalized degenerative changes are seen, which are considered to be age-appropriate. If there is point tenderness (or other clinical suspicion for a fracture not seen on these images) then a dedicated CT could be considered for further evaluation, if clinically appropriate. Dictated by: Jefry Wright M.D. on 12/19/2022 at 18:28 Approved by: Jefry Wright M.D. on 12/19/2022 at 18:29 lumbar xr: Radiologist's Impression: ========= [address] [id number] ReportSigned Patient: Maggy Tucker KMR#: [id number]: 5Acct:[id number]/Sex: 77 / FDate of Service: 12/19/22Loc: EDAccession Number: [id number] Procedure: XR lumbar spine 2-3V Ordering Provider: Sujit Howard P.A-C PROCEDURE: XR LUMBAR SPINE 2-3V INDICATIONS: Lumbar pain TECHNIQUE: 3 views of the lumbar spine were acquired. COMPARISON: [facility], CT, CT ABDOMEN PELVIS WITH CONTRAST, 01/31/2019, 15:10. [facility], CR, XR THORACIC SPINE 3V, 12/19/2022, 18:24. [facility], CR, L-SPINE 2-3 VIEWS, 12/21/2015, 11:19. FINDINGS: Bones: 5 [id number]-sja-[id number] vertebrae are present. No vertebral body compression fractures. No suspicious bony lesions. Mild levoconvex scoliotic curvature is noted. No focal AP alignment abnormality is seen. Moderate disc space narrowing is seen at L1-L2 and L5-S1. The disc heights otherwise appear well-preserved. Lower lumbar spine facet arthropathy is seen. Soft tissues: Overlying bowel gas pattern is normal. No suspicious soft tissue calcifications. Numerous postoperative clips are seen, including cholecystectomy clips. IMPRESSION: Levoconvex lumbar scoliotic curvature and multiple levels of degenerative change are seen. If there is point tenderness (or other clinical suspicion for a fracture not seen on these images) then a dedicated CT could be considered for further evaluation, if clinically appropriate. Dictated by: Jefry Wright M.D. on 12/19/2022 at 18:30 Approved by: Jefry Wright M.D. on 12/19/2022 at 18:31 MDM Narrative Medical decision making narrative: MDM * differential diagnosis includes but not limited to rib fractures, pneumonia, pneumothorax, pulmonary contusion, rib contusion, vertebral fracture * Prior records reviewed: Patient has not been here for similar complaints in the past * My lab interpretation: None obtained * My imgaing interpretation: Rib x-rays positive for rib fractures of 7 8 and 9. No pneumothorax. No vertebral fractures * Clinical Decision Rules/Scores evaluated: None * Independent discussions with: None ED Course: This is a 77-year-old female presents to the emergency department complaining of right rib pain after tripping and falling. Patient is on blood thinners but she would not report or show any evidence of ecchymosis to the right ribs. There is also no evidence of pneumothorax. Patient's vertebral spine was also x-rays she did have some tenderness of the unclear if proximal ribs or true vertebral tenderness to palpation. Vertebral x-rays negative. Patient was satting within normal limits throughout the course of the encounter. She was also walked with nursing with no desaturations. She will be instructed to use spread in his incentive spirometry and do treat rib fractures conservatively. Due the patient's severity of pain will prescribe a very low dose of oxycodone for the sake as needed to help her sleep at night. Strongly reinforced the fact that she should only take a small amount to help with sleep. Use Tylenol primarily . Shared Decision Making: Discussed plan with patient who is comfortable with plan. Social Considerations: None Disposition: Discharged to home Discharge Plan Departure Patient Disposition: Home Clinical Impression: Fracture, ribs Instructions: DI for Rib Fracture Activity Restrictions/Additional Instructions: Thank you for coming to the [facility] Emergency Department today. As we discussed your 3 rib fractures on the right side. Your x-ray showed no evidence of any kind of lung damage. Your spine x-rays were negative for any fractures. Please continue to use the incentive spirometer as instructed help explain your lungs to avoid developing any kind pneumonia. You may use the oxycodone sparingly and as needed to help you sleep. I strongly recommend use Tylenol to help manage the pain. I hope you feel better soon. Prescriptions: New oxycodone 5 mg capsule 5 mg PO BEDTIME PRN (Reason: pain rib fracture) Qty: 14 0RF No Action CA PANTOTHENATE/FOLIC ACID/VIT (MULTIVITAMIN) 1 tab PO Q DAY Qty: 0 AMINOBENZOIC ACID/BIOTIN/CA (#B COMPLEX) 1 cap PO Q DAY Qty: 0 lysine [L-Lysine] 500 MG tablet 500 mg PO Q DAY Qty: 0 Hydrochlorothiazide/Triamter (#DYAZIDE 25 MG-37.5 MG) 1 cap PO Q DAY Qty: 0 dicyclomine 20 MG tablet 20 mg PO QID PRNQty: 0 TRIAMCINOLONE ACETONIDE (NASACORT AQ) 120 spray Intranasal BID Qty: 0 VITAMIN D (Vitamin D3) 1,000 unit PO QDAY Qty: 0 levothyroxine [Synthroid] 175 mcg tablet 200 mcg PO Q DAY Qty: 0 estradiol 1 mg tablet See Rx Instructions .ROUTE .COMPLEX Qty: 90 3RF Dose Instruction: Take one tablet by mouth every day for hormone replacement therapy. Rx Instructions: Take one tablet by mouth every day for hormone replacement therapy. gabapentin 400 mg capsule 400 mg PO DAILY duloxetine 60 mg capsule,delayed release(DR/EC) 60 mg PO DAILY metoprolol succinate 25 mg tablet extended release 24 hr 12.5 mg PO DAILY Eliquis 5 mg tablet 5 mg PO BID alendronate [Fosamax] PO estradiol 0.01 % (0.1 mg/gram) cream 1 g vaginal 2XW Qty: 42.5 1RF Rx Instructions: Apply externally nightly for 2 weeks then twice weekly pantoprazole PO [id number] See Rx Instructions PO .COMPLEX Rx Instructions: takes 2 with every meal, 1 with every snack PO ; prochlorperazine Edisylate PO benzonatate [Tessalon Perles] 100 mg capsule 100 mg PO BID PRN ondansetron 4 mg tablet,disintegrating 4 mg PO Q8H PRN (Reason: nausea and vomiting) Qty: 20 0RF mecobalamin (vitamin B12) 5,000 mcg tablet,disintegrating PO Referrals: Ehsan Storm MD [Primary Care Provider] - Stand Alone Forms: Patient Portal/API <Isidro Marie DO - Last Filed: 12/19/22 22:46> Cosign ED Attending Cosignature Attestation: Dr Marie Co-Sign Statement: I was available for consultation during this patient's emergency department visit. This chart is signed by myself for administrative purposes only. I did not have direct contact with this patient during this visit. They were seen independently by the APC.
[2022-12-19 18:30] VITALS: PULSE 78; O2SAT 99
[2022-12-19 18:45] VITALS: BP 153/69; PULSE 54; O2SAT 97
[2022-12-19 19:00] VITALS: PULSE 79; O2SAT 97
[2022-12-19 19:01] VITALS: BP 157/72; PULSE 89; O2SAT 97
== END 2022-12-19 20:14 | disposition home or self-care (01) ==
PROVIDERS: Emergency Provider Physician Assistant Medical; PCP Family Medicine
DX: S22.41XA Multiple fractures of ribs, right side, initial encounter for closed fracture (principal); W01.0XXA Fall on same level from slipping, tripping and stumbling without subsequent striking against object, initial encounter
CPT/HCPCS: 71101; 72072; 72100; 99281; 99283

== ENCOUNTER → 2023-04-12 13:37 | Outpatient (CLI) | payer MEDICARE, BC, SELFPAY | PROVIDERS: PCP Family Medicine; Visit Provider Nurse Practitioner Family | DX: R39.9 Unspecified symptoms and signs involving the genitourinary system (principal) | CPT/HCPCS: 87077; 87086; 87186 ==

== ENCOUNTER → 2023-10-23 14:27 | Outpatient (CLI) | payer MEDICARE, BC, SELFPAY ==
--- NOTE | 2023-10-23 14:38 | DI.RAD.S_ITS ---
PROCEDURE: XR CHEST 2V INDICATIONS: SOB TECHNIQUE: 2 views of the chest were acquired. COMPARISON: [facility], , CHEST 2 VIEW, 01/19/2015, 11:02. FINDINGS: Surgical changes and devices: Right chest port is noted. Lungs and pleura: Chronic lung changes are present. Small left pleural effusion versus pleural thickening. No pneumothorax. Mediastinum: Mediastinal contours are unremarkable. No cardiomegaly seen Bones and chest wall: Note is made of scoliosis.. IMPRESSION: No acute cardiopulmonary abnormality seen Dictated by: Kendall Lopez M.D. on 10/23/2023 at 18:55 Approved by: Kendall Lopez M.D. on 10/23/2023 at 18:59
== END ==
LOC: RAD 14:36
PROVIDERS: PCP Family Medicine; Referring Provider Internal Medicine Cardiovascular Disease; Visit Provider Internal Medicine Cardiovascular Disease
DX: R06.02 Shortness of breath (principal)
CPT/HCPCS: 71046

== ENCOUNTER → 2024-01-03 09:38 | Outpatient (CLI) | payer MEDICARE, BC, SELFPAY ==
--- NOTE | 2024-01-03 19:25 | DI.NM.S_ITS ---
DATE OF SERVICE: 01/03/2024 PROCEDURE: Pharmacological perfusion study. INDICATIONS: AFib, hypertension. RADIOPHARMACEUTICAL: 25.5 millicurie technetium-99m Myoview IV was injected at stress and 11.1 millicurie technetium-99m Myoview IV was injected at rest. CARDIAC STRESS: The patient underwent IV Lexiscan perfusion study under the supervision of an attending staff using standard intravenous Lexiscan as per protocol. She remained hemodynamically stable. Baseline blood pressure 134/68. Baseline rhythm sinus with likely sinus arrhythmias, without any AFib. During stress, no convincing ischemic changes seen. No new significant arrhythmias. The patient had minimal dyspnea. Also, had mild nausea and lightheadedness without any chest discomfort. RAW DATA: Breast shadow was seen. GATED STUDY: Stress LV ejection fraction 75% without any obvious wall motion abnormalities. Resting end-diastolic volume 69 mL. TID ratio 1.26, which is in the setting of pharmacological perfusion study. Visually, no significant transient ischemic dilatation. Lung/heart ratio 0.30, which is within normal limits. MYOCARDIAL PERFUSION SCAN: Stress supine, resting supine and stress prone images were compared to each other. There is small size, minimally decreased perfusion of anterior wall without any significant reversible ischemia. Summed stress score zero as well as summed rest score zero and difference score is zero. Anterior wall is moving well. On raw images breast shadow was seen. Likely breast tissue attenuation artifact. CONCLUSION: There is small size, minimally decreased perfusion of anterior wall without any significant reversible ischemia. I will call this study likely a normal myocardial perfusion study with summed stress score zero and summed rest score zero. Preserved left ventricular function. No wall motion abnormalities. Anterior wall moving well. Likely an element of breast tissue attenuation artifact. Overall, low-risk myocardial perfusion study. Correlate clinically. Maggy Tucker - SUZIE/marsha/susanna doc#: [id number]/job#: [id number] dd: 01/03/2024 16:26:00 dt: 01/03/2024 19:06:00 DICTATING MD/COPIES TO: Lupe Green MD COPIES MNE: TRAY;
== END ==
LOC: NUCM 09:38
PROVIDERS: PCP Family Medicine; Referring Provider Nurse Practitioner Family; Visit Provider Nurse Practitioner Family
DX: I48.11 Longstanding persistent atrial fibrillation (principal); I10 Essential (primary) hypertension
CPT/HCPCS: 78452; 93017; A9502; J2785

== ENCOUNTER → 2024-01-15 10:35 | Outpatient (CLI) | payer MEDICARE, BC, SELFPAY ==
[2024-01-15 11:48] LABS: Add Manual Diff / Slide Review NO; Basophils Absolute Auto 0 /uL (0-100); Basophils Percent Auto 0.7 % (0-2); Eosinophils Absolute Auto 200 /uL (0-450); Eosinophils Percent Auto 3.5 % (2-4); Hemoglobin 12.8 g/dL (12.0-16.0); Lymphocytes Absolute Auto 1400 /uL (1100-4500); Lymphocytes Percent Auto 23.2 % (25-40); Mean Corpuscular HGB Conc 33.8 % (30-36); Mean Corpuscular Hemoglobin 35.8 PG (26-34); Mean Corpuscular Volume 106.1 fL (80-100); Monocytes Absolute Auto 400 /uL (0-900); Monocytes Percent Auto 6.8 % (3-14); Neutrophils Absolute Auto 4000 /uL (1500-7000); Neutrophils Percent Auto 65.8 % (50-75); Platelet Count 183 X10^3/uL (150-400); Red Blood Cell Count 3.58 X10^6/uL (4.0-5.2); Red Cell Distribution Width 13.2 % (11.6-14.8); White Blood Cell Count 6.1 X10^3/uL (4.5-11.0)
[2024-01-15 12:15] LABS: BUN Creatinine Ratio 20.4 (6-22); Blood Urea Nitrogen 31 mg/dL (7-17); Carbon Dioxide 30 mmol/L (22-32); Chloride 105 mmol/L (98-107); Estimated Glomerular Filt Rate 35 mL/min (>60); Glucose 103 mg/dL (80-110); HEMOLYSIS < 15 (0-50); Potassium 4.6 mmol/L (3.4-5.1); Sodium 139 mmol/L (137-145)
== END ==
PROVIDERS: PCP Family Medicine; Referring Provider Nurse Practitioner Family; Visit Provider Nurse Practitioner Family
DX: I48.11 Longstanding persistent atrial fibrillation (principal)
CPT/HCPCS: 36415; 80048; 85025

== ENCOUNTER → 2024-05-30 11:27 | Outpatient (CLI) | payer MEDICARE, BC, SELFPAY ==
--- NOTE | 2024-05-30 11:28 | DI.CT.S_ITS ---
PROCEDURE: CT ANGIO CHEST PE PROTOCOL INDICATIONS: SOB TECHNIQUE: After the administration of intravenous contrast, 2 mm thick sections acquired from the pulmonary apices to the posterior costophrenic angles. 3-dimensional maximum intensity projection (MIP) coronal and sagittal reformats were then acquired through the thorax. For radiation dose reduction, the following was used: automated exposure control, adjustment of mA and/or kV according to patient size. COMPARISON: [facility], CT, CT ANGIO CHEST PE, 07/12/2023, 23:14. [facility], CT, CT ANGIO CHEST, 08/09/2023, 15:59. FINDINGS: Image quality: Diagnostic. Pulmonary arteries: Pulmonary arteries are normal in size, and demonstrate no intraluminal filling defects to suggest central pulmonary embolism. Lungs and Pleura: Patchy ground-glass opacities within the dependent portions of both upper and both lower lobes likely atelectasis. No focal airspace opacity or consolidation. No suspicious pulmonary nodules or masses. No evidence of pneumothorax or pleural effusion. Lower Neck: No enlarged lymph nodes. Thyroid: No thyroid nodules which require sonographic follow up, per consensus guidelines. Axillae: No enlarged lymph nodes. Chest Wall: Unremarkable. Bones: Unremarkable. Heart: Mild cardiomegaly. No pericardial effusion. Dual chamber left-sided pacemaker is in place. Thoracic Vessels: No aortic aneurysm. Mediastinum and Katarzyna: No enlarged lymph nodes. Esophagus: No wall thickening. No hiatal hernia. Upper Abdomen: Visualized upper abdomen solid organs and bowel loops appear normal. Small amount of partially imaged pneumobilia related to prior Whipple with hepaticojejunostomy. IMPRESSION: 1. No evidence of pulmonary artery thromboembolism. 2. No acute cardiopulmonary process. Dictated by: Tristin Hannon M.D. on 05/30/2024 at 17:08 Approved by: Tristin Hannon M.D. on 05/30/2024 at 17:16
[2024-05-30 12:14] LABS: Estimated Glomerular Filt Rate 40 mL/min (>60)
== END ==
PROVIDERS: Radiology Diagnostic Radiology; PCP Family Medicine; Referring Provider Internal Medicine Critical Care Medicine; Visit Provider Internal Medicine Critical Care Medicine
DX: R06.02 Shortness of breath (principal); I51.7 Cardiomegaly; Z95.0 Presence of cardiac pacemaker; Z93.4 Other artificial openings of gastrointestinal tract status
CPT/HCPCS: 36415; 71275; 82565; Q9967

== ENCOUNTER 2024-06-03 19:41 | Emergency (ER) | payer MEDICARE, BC, SELFPAY ==
[2024-06-03 19:53] VITALS: BP 105/53; PULSE 66; RESP 18; TEMP 35.8; O2SAT 95; BMI 24.4
== END 2024-06-03 22:00 | disposition left against medical advice (07) ==
PROVIDERS: Emergency Provider Emergency Medicine; PCP Family Medicine
DX: S61.212A Laceration without foreign body of right middle finger without damage to nail, initial encounter (principal); W45.8XXA Other foreign body or object entering through skin, initial encounter; Y93.G3 Activity, cooking and baking
CPT/HCPCS: 99281

== ENCOUNTER 2024-07-02 17:56 | Emergency (ER) | payer MEDICARE, BC, SELFPAY ==
[2024-07-02] VITALS (8 sets, daily range): BP systolic 144–164; BP diastolic 67–78; PULSE 60–66; RESP 12–30; TEMP 36.6–36.7; O2SAT 95–98
--- NOTE | 2024-07-02 17:57 | DI.CT.S_ITS ---
PROCEDURE: CT CERVICAL SPINE WO CON INDICATIONS: fall on thinner TECHNIQUE: Noncontrast 3 mm thick sections acquired from the skull base to the T4 level. Sagittal and coronal reformats were then constructed. For radiation dose reduction, the following was used: automated exposure control, adjustment of mA and/or kV according to patient size. COMPARISON: [facility], CT, CT HEAD/BRAIN WO CON, 07/02/2024, 18:03. [facility], CT, CT CERVICAL SPINE WO CON, 06/15/2022, 12:23. FINDINGS: Image quality: Excellent. Bones: No fractures or dislocations. Visualized superior ribs are intact. Focal degenerative change is seen involving the C1-C2 interface anteriorly. There is at least moderate disc space narrowing seen at C4-C5 and C5-C6. Plpl-nq-[id number] disc space narrowing can be seen at C6-C7. Minimal anterolisthesis can be seen at the C4-C5 level. Soft tissues: Prevertebral soft tissues are normal in thickness. No paravertebral hematomas. No apical pneumothoraces. Postoperative clips can be seen within the left submandibular region. There is a right-sided chest port partially seen. Left-sided pacer leads are seen. IMPRESSION: No displaced fracture or traumatic subluxation. Multiple levels cervical spine degenerative change can be seen, which are worst at the C5-C6 level. Dictated by: Jefry Wright M.D. on 07/02/2024 at 17:42 Approved by: Jefry Wright M.D. on 07/02/2024 at 17:43
--- NOTE | 2024-07-02 17:57 | DI.CT.S_ITS ---
PROCEDURE: CT HEAD/BRAIN WO CON INDICATIONS: fall on thinner TECHNIQUE: Noncontrast 4.5 mm thick angled axial sections acquired from the foramen magnum to the vertex, with coronal and sagittal reformats. For radiation dose reduction, the following was used: automated exposure control, adjustment of mA and/or kV according to patient size. COMPARISON: [facility], CT, CT CERVICAL SPINE WO CON, 07/02/2024, 18:03. [facility], CT, CT HEAD/BRAIN WO CON, 06/15/2022, 12:23. FINDINGS: Image quality: This examination is limited by involuntary motion artifact. CSF spaces: Basal cisterns are patent. No extra-axial fluid collections. The ventricles are symmetric in size and shape. Brain: No intracranial bleeds or masses. There is cerebral volume loss for age, with resultant ventricular and sulcal prominence. There are periventricular and deep white matter chronic small vessel ischemic changes. There is intracranial internal carotid artery atherosclerosis. Skull and face: Scalp laceration can be seen on the left superiorly, without an associated calvarial fracture. Calvarium and visualized facial bones appear intact, without suspicious lesions. Sinuses: Visualized sinuses and mastoids are clear. IMPRESSION: Left-sided scalp laceration, without an associated calvarial fracture. No acute intracranial hemorrhage is seen. No acute intracranial process is seen. Dictated by: Jefry Wright M.D. on 07/02/2024 at 17:44 Approved by: Jefry Wright M.D. on 07/02/2024 at 17:45
--- NOTE | 2024-07-02 18:01 | ED.TRAUMA ---
HPI - Trauma General Chief Complaint: Fall Stated Complaint: fall on thinners Time Seen by Provider: 07/02/24 17:56 Source: patient, EMS, RN notes reviewed and old records reviewed Mode of arrival: EMS Limitations: no limitations History of Present Illness HPI narrative: 79-year-old history of atrial fibrillation on Eliquis, pacemaker, hypothyroidism, prior pancreatic cancer with Whipple procedure who presents with complaint of fall from toilet and head injury. Patient states she was sitting on the toilet leaned forward to wipe fell forward into the edge of the bathtub and the rail from the shower. Patient did have a cut to her. EMS notes quite a bit of blood at the scene. Patient states no loss of consciousness. Denies any headache or neck pain, denies any chest pain or shortness of breath, denies any nausea or vomiting, denies any diarrhea or constipation. Denies any loss of bowel or bladder control. Denies any other injuries elsewhere. Patient states prior surgeries include a pacemaker and had a Whipple procedure for pancreatic cancer in the past. Allergies related are codeine and zolpidem. No tobacco, she did have 2 glasses of wine earlier this evening. States she typically has 1 or 2 glasses nightly, no recreational drugs. Related Data Home Medications Medication Instructions Recorded Confirmed AMINOBENZOIC ACID/BIOTIN/CA (#B 1 cap PO Q DAY ##0 10/11/11 05/21/24 COMPLEX) CA PANTOTHENATE/FOLIC ACID/VIT 1 tab PO Q DAY ##0 10/11/11 05/21/24 (MULTIVITAMIN) VITAMIN D (Vitamin D3) 1,000 unit PO QDAY ##0 10/11/11 05/21/24 dicyclomine 20 mg tablet 20 mg PO QID PRN ##0 10/11/11 05/21/24 lysine 500 mg tablet (L-Lysine) 500 mg PO Q DAY ##0 10/11/11 05/21/24 mecobalamin (vitamin B12) 5,000 mcg PO 07/18/18 05/21/24 mcg disintegrating tablet alendronate [Fosamax] PO 11/10/21 05/21/24 apixaban 5 mg tablet (Eliquis) 5 mg PO BID 11/10/21 05/21/24 metoprolol succinate 25 mg 12.5 mg PO DAILY 11/10/21 05/21/24 tablet,extended release 24 hr acetaminophen 650 mg 650 mg PO Q12H 05/21/24 05/21/24 tablet,extended release (Tylenol 8 Hour) alpha lipoic acid 600 mg capsule 600 mg PO DAILY 05/21/24 05/21/24 amiodarone 200 mg tablet 200 mg PO DAILY 05/21/24 05/21/24 atorvastatin 10 mg tablet 10 mg PO DAILY 05/21/24 05/21/24 azelastine 137 mcg (0.1 %) nasal 2 spray intranasal BID 05/21/24 05/21/24 spray diclofenac sodium 1 % topical gel 2 g topical QID 05/21/24 05/21/24 esomeprazole magnesium 40 mg 40 mg PO DAILY 05/21/24 05/21/24 capsule,delayed release (Nexium) fluticasone propionate 50 1 spray intranasal BID 05/21/24 05/21/24 mcg/actuation nasal spray,suspension (Flonase Allergy Relief) levothyroxine 150 mcg capsule 150 mcg PO DAILY 05/21/24 05/21/24 lidocaine 5 % topical patch 1 patch topical DAILY 05/21/24 05/21/24 loratadine 10 mg tablet 10 mg PO DAILY 05/21/24 05/21/24 magnesium oxide 400 mg PO DAILY 05/21/24 05/21/24 torsemide 20 mg tablet 20 mg PO DAILY 05/21/24 05/21/24 clonazepam 0.5 mg tablet 0.5 mg PO DAILY 06/05/24 06/05/24 duloxetine 20 mg capsule,delayed mg PO 06/05/24 06/05/24 release ferrous sulfate 325 mg (65 mg 325 mg PO BID 06/05/24 06/05/24 iron) tablet (FeroSul) [id number]-[id number]-gcudnxb cap PO 06/05/24 06/05/24 24,000-76,000-120,000 unit capsule,delayed rel (Creon) Previous Rx's Medication Instructions Recorded estradiol 1 mg tablet See Rx Instructions .Route 09/13/21 .COMPLEX #90 tabs estradiol 0.01% (0.1 mg/gram) 1 g vaginal 2XW Vaginal atrophy 11/10/21 vaginal cream #42.5 grams ondansetron 4 mg disintegrating 4 mg PO Q8H PRN nausea and 06/15/22 tablet vomiting #20 tabs Allergies Allergy/AdvReac Type Severity Reaction Status Date / Time codeine [CODEINE] Allergy Unknown Verified 07/02/24 18:02 zolpidem Allergy altered Verified 07/02/24 18:02 thoughts Review of Systems Review of Systems ROS Unobtainable: All systems reviewed & are unremarkable except as noted in HPI and below Patient History Medical History Atrial fibrillation Pancreatic cancer (~08/2018) Surgical History History of bladder suspension procedure Status post vaginal hysterectomy (~1994) Status post colonoscopy (09/20/14) Social History Smoking Status: Never smoker Smoking Status: Never smoker alcohol intake frequency: a few times a week Substance Use Type: does not use Exam Narrative Exam Narrative: GEN: C-collar prior to arrival, Patient appears in mild distress. HEAD: Laceration of the scalp no raccoon/José sign. NECK: Nontender, painless range of motion, trachea midline Positive Nexus criteria, no midline line tenderness, distracting injury, altered mental status, neuro deficit, positive for recent EtOH. EYES: PERRLA, EOMI ENT: External inspection normal, trachea is midline, TM's are normal no hemotypanum, Nares are clear, no septal hematoma, no dental or oral injury, airway is normal and with normal occlusion, No bony tenderness RESP: Chest is nontender and has symmetric movement, no ecchymosis, breath sounds are normal no crackles, wheezes or rales CVS: Heart sounds are normal, no murmur noted, No JVD. ABG/GI: Nontender, soft, normal bowel sounds, no distention, no organomegaly, pelvic rock is negative NEURO: Oriented AOx3, neuro is grossly intact, sensation and motor is normal all 4 extremities moving, cranial nerves II through XII are intact, GCS is 15 PSYCH: Normal mood and affect SKIN: Intact, warm and dry, no crepitus and without decubitus BACK: No CVA tenderness, no vertebral tenderness, no step-off's, no crepitus EXT: Atraumatic, hips are nontender, no pedal edema, normal color and temperature, normal range of motion of extremities with normal tendon exam, 2+ pulses in all four extremities Initial Vital Signs Initial Vital Signs: Vital Signs Temperature 98.1 F 07/02/24 17:56 Pulse Rate 60 07/02/24 17:56 Respiratory Rate 12 07/02/24 17:56 Blood Pressure 150/67 H 07/02/24 17:56 Pulse Oximetry 98 07/02/24 17:56 Oxygen Delivery Method Room Air 07/02/24 17:56 Procedures Laceration Repair Laceration 1: Site: scalp Side (If applicable): left Size (cm): 10 Description: flap and irregular Depth: simple, single layer Local Anesthetic: lidocaine 2% Amount of anesthesia used (mL): 6 Pre-repair: wound explored, irrigated extensively and deep structures intact Skin layer closed with: tamiko (#14) Course Orders Ordered: Discontinued Medications Diphtheria/Tetanus/Acell Pertussis (Tet,Diph,Pertuss(Acell),Vac/Pf 0.5 Ml Syringe) 0.5 ml IM .ONCE ONE Stop: 07/02/24 18:05 Last Admin: 07/02/24 18:57 Dose: 0.5 ml Documented By: CHIP Vital Signs Vital signs: Vital Signs - 8 hr 07/02/24 20:39 Temperature 97.8 F Pulse Rate 66 Respiratory Rate 16 Blood Pressure 144/78 H Pulse Oximetry 97 Oxygen Delivery Method Room Air MDM - Trauma Lab Data 07/02/24 18:00 07/02/24 18:00 Labs: Lab Results 07/02/24 Range/Units 18:00 WBC 5.6 (4.5-11.0) X10^3/uL RBC 3.62 L (4.0-5.2) X10^6/uL Hgb 12.4 (12.0-16.0) g/dL Hct 37.5 (36-46) % MCV 103.6 H (80-100) fL MCH 34.4 H (26-34) PG MCHC 33.2 (30-36) % RDW 13.2 (11.6-14.8) % Plt Count 148 L (150-400) X10^3/uL Neut % (Auto) 58.6 (50-75) % Lymph % (Auto) 27.2 (25-40) % [place] % (Auto) 9.4 (3-14) % Eos % (Auto) 3.8 (2-4) % Baso % (Auto) 1.0 (0-2) % Neut # (Auto) 3300 (8721-0798) /uL Lymph # (Auto) 1500 (9721-3036) /uL [place] # (Auto) 500 (0-900) /uL Eos # (Auto) 200 (0-450) /uL Baso # (Auto) 100 (0-100) /uL PT 12.7 H (9.4-12.5) SECONDS INR 1.1 (0.9-1.3) APTT 41 H (25.1-36.5) SECONDS Sodium 140 (137-145) mmol/L Potassium 4.0 (3.4-5.1) mmol/L Chloride 104 (98-107) mmol/L Carbon Dioxide 24 (22-32) mmol/L BUN 23 H (7-17) mg/dL Creatinine 1.36 H (0.52-1.04) mg/dL Estimated GFR 40 L (>60) mL/min BUN/Creatinine Ratio 16.9 (6-22) Glucose 99 (80-110) mg/dL Calcium 8.7 (8.4-10.2) mg/dL Total Bilirubin 0.5 (0.2-1.3) mg/dL AST 33 (14-36) IU/L ALT 20 (<35) IU/L Alkaline Phosphatase 116 (38-126) U/L Total Protein 6.8 (6.3-8.2) g/dL Albumin 4.3 (3.5-5.0) g/dL Globulin 2.5 (1.7-4.1) g/dL Albumin/Globulin Ratio 1.7 (1.0-2.8) MDM Narrative Medical decision making narrative: 79-year-old with mechanical ground level fall leaning forward from the toilet striking her head in the end of the bathroom in the metal rail, denies any loss of consciousness did have 2 alcoholic drinks dinner this evening. Head CT shows no acute change, left-sided scalp laceration without any associated calvarial fracture, no acute hemorrhage, no acute intracranial process noted. CT cervical spine shows focal degenerative changes at multiple levels seen worse at C5-6. Fracture or traumatic subluxation noted. Hemoglobin appears stable from prior, hemoglobin is 12.4 was 12.8 on 01/15/2024 with a hematocrit of 37.5 and was 38 on 01/15/2024. Normal white count, platelets are 148 has been intermittently decreased in the past. Creatinine is 1.36 consistent with priors, electrolytes are overall appropriate LFTs are negative. PTT is 41. Patient had laceration repaired. She tolerated well. Ambulation trial here in the department without any issue. Discharge Plan Departure Patient Disposition: Home Clinical Impression: Laceration of scalp, Fall Instructions: DI for Laceration Repair -- [place], Closed Head Injury Activity Restrictions/Additional Instructions: Wound Care: Keep wound(s) clean and dry. Wash daily with soap and water only. Do not use over the counter products (alcohol or peroxide)on the wounds unless instructed by a physician. If wound condition worsens (increased/expanding redness, developing fluid blisters, or worsening pain), either contact your doctor for an urgent re-assessment , or return to the Emergency Department. Return to the Emergency Department for any new or worsening symptoms. Return to the ED, urgent care, or visit a primary care doctor for removal of tamiko in the next 7-10 days. Return if fever greater than 100.4 Fahrenheit, increased swelling, increasing pain or worsening symptoms such as increased discharge or spreading redness, you confusion, altered mental status, severe headaches, sudden vision changes, nausea or vomiting, new back or neck pain, new numbness tingling or weakness, passing out or other new or concerning changes. Prescriptions: No Action clonazepam 0.5 mg tablet 0.5 mg PO DAILY duloxetine 20 mg capsule,delayed release(DR/EC) PO Creon 24,000-76,000 -120,000 unit capsule,delayed release(DR/EC) PO ferrous sulfate [FeroSul] 325 mg (65 mg iron) tablet 325 mg PO BID CA PANTOTHENATE/FOLIC ACID/VIT (MULTIVITAMIN) 1 tab PO Q DAY Qty: 0 AMINOBENZOIC ACID/BIOTIN/CA (#B COMPLEX) 1 cap PO Q DAY Qty: 0 lysine [L-Lysine] 500 MG tablet 500 mg PO Q DAY Qty: 0 dicyclomine 20 MG tablet 20 mg PO QID PRNQty: 0 VITAMIN D (Vitamin D3) 1,000 unit PO QDAY Qty: 0 estradiol 1 mg tablet See Rx Instructions .ROUTE .COMPLEX Qty: 90 3RF Dose Instruction: Take one tablet by mouth every day for hormone replacement therapy. Rx Instructions: Take one tablet by mouth every day for hormone replacement therapy. metoprolol succinate 25 mg tablet extended release 24 hr 12.5 mg PO DAILY Eliquis 5 mg tablet 5 mg PO BID alendronate [Fosamax] PO Hold Instructions: Home Medication placed on hold at Doctor's office estradiol 0.01 % (0.1 mg/gram) cream 1 g vaginal 2XW Qty: 42.5 1RF Rx Instructions: Apply externally nightly for 2 weeks then twice weekly ondansetron 4 mg tablet,disintegrating 4 mg PO Q8H PRN (Reason: nausea and vomiting) Qty: 20 0RF mecobalamin (vitamin B12) 5,000 mcg tablet,disintegrating PO amiodarone 200 mg tablet 200 mg PO DAILY atorvastatin 10 mg tablet 10 mg PO DAILY azelastine 137 mcg (0.1 %) aerosol,spray 2 spray intranasal BID Rx Instructions: administer into each nostril diclofenac sodium 1 % gel 2 g topical QID Rx Instructions: apply to single elbow, wrist or hand; for hand includes palm/fingers/back of hand esomeprazole magnesium [Nexium] 40 mg capsule,delayed release(DR/EC) 40 mg PO DAILY fluticasone propionate [Flonase Allergy Relief] 50 mcg/actuation spray,suspension 1 spray intranasal BID Rx Instructions: administer into each nostril levothyroxine 150 mcg capsule 150 mcg PO DAILY lidocaine 5 % adhesive patch,medicated 1 patch topical DAILY Rx Instructions: leave on most painful area for up to 12 hrs loratadine 10 mg tablet 10 mg PO DAILY magnesium oxide 400 mg magnesium tablet 400 mg PO DAILY torsemide 20 mg tablet 20 mg PO DAILY alpha lipoic acid 600 mg capsule 600 mg PO DAILY acetaminophen [Tylenol 8 Hour] 650 mg tablet extended release 650 mg PO Q12H Referrals: Ehsan Storm MD [Primary Care Provider] - Stand Alone Forms: Patient Portal/API
[2024-07-02 18:11] LABS: Add Manual Diff / Slide Review NO; Basophils Absolute Auto 100 /uL (0-100); Eosinophils Absolute Auto 200 /uL (0-450); Eosinophils Percent Auto 3.8 % (2-4); Hematocrit 37.5 % (36-46); Hemoglobin 12.4 g/dL (12.0-16.0); Lymphocytes Absolute Auto 1500 /uL (1100-4500); Lymphocytes Percent Auto 27.2 % (25-40); Mean Corpuscular HGB Conc 33.2 % (30-36); Mean Corpuscular Hemoglobin 34.4 PG (26-34); Mean Corpuscular Volume 103.6 fL (80-100); Monocytes Absolute Auto 500 /uL (0-900); Monocytes Percent Auto 9.4 % (3-14); Neutrophils Absolute Auto 3300 /uL (1500-7000); Neutrophils Percent Auto 58.6 % (50-75); Platelet Count 148 X10^3/uL (150-400); Red Blood Cell Count 3.62 X10^6/uL (4.0-5.2); Red Cell Distribution Width 13.2 % (11.6-14.8); White Blood Cell Count 5.6 X10^3/uL (4.5-11.0)
[2024-07-02 18:20] LABS: INR 1.1 (0.9-1.3); Prothrombin Time 12.7 SECONDS (9.4-12.5)
[2024-07-02 18:22] LABS: PTT Partial Thromboplastin Tim 41 SECONDS (25.1-36.5)
--- NOTE | 2024-07-02 18:38 | PC.NURSE ---
c -spine precautions maintained
[2024-07-02] MEDS: TET,DIPH,PERTUSS(ACELL),VAC/PF 0.5 ML SYRINGE IM (18:57)
[2024-07-02 19:20] LABS: Alanine Aminotransferase 20 IU/L (<35); Albumin 4.3 g/dL (3.5-5.0); Albumin Globulin Ratio 1.7 (1.0-2.8); Alkaline Phosphatase 116 U/L (38-126); Aspartate Aminotransferase 33 IU/L (14-36); BUN Creatinine Ratio 16.9 (6-22); Bilirubin Total 0.5 mg/dL (0.2-1.3); Blood Urea Nitrogen 23 mg/dL (7-17); Calcium 8.7 mg/dL (8.4-10.2); Carbon Dioxide 24 mmol/L (22-32); Chloride 104 mmol/L (98-107); Estimated Glomerular Filt Rate 40 mL/min (>60); Globulin 2.5 g/dL (1.7-4.1); Glucose 99 mg/dL (80-110); HEMOLYSIS < 15 (0-50); Sodium 140 mmol/L (137-145); Total Protein 6.8 g/dL (6.3-8.2)
== END 2024-07-02 20:40 | disposition home or self-care (01) ==
PROVIDERS: Emergency Provider Emergency Medicine; PCP Family Medicine
DX: S01.01XA Laceration without foreign body of scalp, initial encounter (principal); W18.12XA Fall from or off toilet with subsequent striking against object, initial encounter; Z79.01 Long term (current) use of anticoagulants; Z23 Encounter for immunization
CPT/HCPCS: 12004; 36415; 70450; 72125; 80053; 85025; 85610; 85730; 90471; 99284; 90715

== ENCOUNTER 2024-07-05 19:33 | Emergency (ER) | payer MEDICARE, BC, SELFPAY ==
[2024-07-05] VITALS (12 sets, daily range): BP systolic 108–143; BP diastolic 54–68; PULSE 57–63; RESP 16–18; TEMP 36.4; O2SAT 92–97; BMI 25.4
--- NOTE | 2024-07-05 20:12 | DI.CT.S_ITS ---
PROCEDURE: CT CERVICAL SPINE WO CON INDICATIONS: fall on blood thinners TECHNIQUE: Noncontrast 3 mm thick sections acquired from the skull base to the T4 level. Sagittal and coronal reformats were then constructed. For radiation dose reduction, the following was used: automated exposure control, adjustment of mA and/or kV according to patient size. COMPARISON: [facility], CT, CT CERVICAL SPINE WO CON, 07/02/2024, 18:03. FINDINGS: Image quality: Mild motion artifact. Bones: No fractures or dislocations. Multilevel degenerative changes of the cervical spine. Straightening of the normal cervical lordosis. Mild anterolisthesis of C4 on C5 is stable. Decreased osseous mineralization. Visualized superior ribs are intact. Minimally displaced fracture of the left scapular body. Soft tissues: Prevertebral soft tissues are normal in thickness. No paravertebral hematomas. No apical pneumothoraces. Left chest wall pacemaker is partially visualized. IMPRESSION: No displaced cervical spine fracture or traumatic subluxation. Minimally displaced fracture of the left scapular body is partially visualized. Dictated by: Luis Alfredo Doyle M.D. on 07/05/2024 at 20:44 Approved by: Luis Alfredo Doyle M.D. on 07/05/2024 at 20:47
--- NOTE | 2024-07-05 20:12 | DI.CT.S_ITS ---
PROCEDURE: CT HEAD/BRAIN WO CON INDICATIONS: fall on blood thinners TECHNIQUE: Noncontrast 4.5 mm thick angled axial sections acquired from the foramen magnum to the vertex, with coronal and sagittal reformats. For radiation dose reduction, the following was used: automated exposure control, adjustment of mA and/or kV according to patient size. COMPARISON: [facility], CT, CT HEAD/BRAIN WO CON, 07/02/2024, 18:03. FINDINGS: Image quality: Diagnostic. CSF spaces: Basal cisterns are patent. No extra-axial fluid collections. The ventricles are symmetric in size and shape. Brain: No intracranial bleeds or masses. There is cerebral volume loss for age, with resultant ventricular and sulcal prominence. There are periventricular and deep white matter chronic small vessel ischemic changes. There is intracranial internal carotid artery atherosclerosis. Skull and face: Left scalp tamiko. Calvarium and visualized facial bones appear intact, without suspicious lesions. Sinuses: Visualized sinuses and mastoids are clear. IMPRESSION: No acute intracranial pathology. Dictated by: Luis Alfredo Doyle M.D. on 07/05/2024 at 20:34 Approved by: Luis Alfredo Doyle M.D. on 07/05/2024 at 20:35
--- NOTE | 2024-07-05 21:37 | ED.GENADULT ---
HPI - General Adult General Chief complaint: Trauma Stated complaint: GLF, On Thinners, Head Injury Time Seen by Provider: 07/05/24 20:11 Source: patient and family Mode of arrival: Wheelchair History of Present Illness HPI narrative: Patient is a 79-year-old female. Is on Eliquis for atrial fibrillation who is here for evaluation of an injuries that she sustained when she fell. This was an unwitnessed fall over the patient states she was getting up from a chair. The triage notes that she was walking around the her house. She was unable to get up. She states her arm hurts because she was trying to push herself up from the floor. There was no loss of consciousness. She was here a couple days ago with a fall that required tamiko for a head laceration. She has bruising around her left eye which appears to be several days old. She was a skin tear on her right moravian which appears to be new. No extremity injuries. Related Data Home Medications Medication Instructions Recorded Confirmed AMINOBENZOIC ACID/BIOTIN/CA (#B 1 cap PO Q DAY ##0 10/11/11 05/21/24 COMPLEX) CA PANTOTHENATE/FOLIC ACID/VIT 1 tab PO Q DAY ##0 10/11/11 05/21/24 (MULTIVITAMIN) VITAMIN D (Vitamin D3) 1,000 unit PO QDAY ##0 10/11/11 05/21/24 dicyclomine 20 mg tablet 20 mg PO QID PRN ##0 10/11/11 05/21/24 lysine 500 mg tablet (L-Lysine) 500 mg PO Q DAY ##0 10/11/11 05/21/24 mecobalamin (vitamin B12) 5,000 mcg PO 07/18/18 05/21/24 mcg disintegrating tablet alendronate [Fosamax] PO 11/10/21 05/21/24 apixaban 5 mg tablet (Eliquis) 5 mg PO BID 11/10/21 05/21/24 metoprolol succinate 25 mg 12.5 mg PO DAILY 11/10/21 05/21/24 tablet,extended release 24 hr acetaminophen 650 mg 650 mg PO Q12H 05/21/24 05/21/24 tablet,extended release (Tylenol 8 Hour) alpha lipoic acid 600 mg capsule 600 mg PO DAILY 05/21/24 05/21/24 amiodarone 200 mg tablet 200 mg PO DAILY 05/21/24 05/21/24 atorvastatin 10 mg tablet 10 mg PO DAILY 05/21/24 05/21/24 azelastine 137 mcg (0.1 %) nasal 2 spray intranasal BID 05/21/24 05/21/24 spray diclofenac sodium 1 % topical gel 2 g topical QID 05/21/24 05/21/24 esomeprazole magnesium 40 mg 40 mg PO DAILY 05/21/24 05/21/24 capsule,delayed release (Nexium) fluticasone propionate 50 1 spray intranasal BID 05/21/24 05/21/24 mcg/actuation nasal spray,suspension (Flonase Allergy Relief) levothyroxine 150 mcg capsule 150 mcg PO DAILY 05/21/24 05/21/24 lidocaine 5 % topical patch 1 patch topical DAILY 05/21/24 05/21/24 loratadine 10 mg tablet 10 mg PO DAILY 05/21/24 05/21/24 magnesium oxide 400 mg PO DAILY 05/21/24 05/21/24 torsemide 20 mg tablet 20 mg PO DAILY 05/21/24 05/21/24 clonazepam 0.5 mg tablet 0.5 mg PO DAILY 06/05/24 06/05/24 duloxetine 20 mg capsule,delayed mg PO 06/05/24 06/05/24 release ferrous sulfate 325 mg (65 mg 325 mg PO BID 06/05/24 06/05/24 iron) tablet (FeroSul) orxkyd-jahasvjv-gjjsicd cap PO 06/05/24 06/05/24 24,000-76,000-120,000 unit capsule,delayed rel (Creon) Previous Rx's Medication Instructions Recorded estradiol 1 mg tablet See Rx Instructions .Route 09/13/21 .COMPLEX #90 tabs estradiol 0.01% (0.1 mg/gram) 1 g vaginal 2XW Vaginal atrophy 11/10/21 vaginal cream #42.5 grams ondansetron 4 mg disintegrating 4 mg PO Q8H PRN nausea and 06/15/22 tablet vomiting #20 tabs Allergies Allergy/AdvReac Type Severity Reaction Status Date / Time codeine [CODEINE] Allergy Unknown Verified 07/05/24 19:39 zolpidem Allergy altered Verified 07/05/24 19:39 thoughts Review of Systems Review of Systems ROS Unobtainable: All systems reviewed & are unremarkable except as noted in HPI and below Patient History Medical History Atrial fibrillation Pancreatic cancer (~08/2018) Surgical History History of bladder suspension procedure Status post vaginal hysterectomy (~1994) Status post colonoscopy (09/20/14) Social History Smoking Status: Never smoker Smoking Status: Never smoker alcohol intake frequency: a few times a week Substance Use Type: does not use Exam Initial Vital Signs Initial Vital Signs: Vital Signs Temperature 97.5 F L 07/05/24 19:39 Pulse Rate 60 07/05/24 19:39 Respiratory Rate 17 07/05/24 19:39 Pulse Oximetry 95 07/05/24 19:39 Oxygen Delivery Method Room Air 07/05/24 19:39 HENMT Head: other ([place] and scalp) Eyes General: Yes appearance normal, both eyes and all related structures Resp Effort & Inspection: normal respiratory effort Cardio Rate: regular rate Skin Other: [place] on scalp laceration appear intact and well without drainage. Bruising around the left eye which appears to be a couple days old consistent with her fall couple days ago. Has a new skin tear on the right moravian. Steri-Strips placed over this area. Extrem General: normal to inspection and capillary refill normal Course Orders Ordered: ED Orders 07/05/24 20:12 CT cervical spine wo con Stat CT head/brain wo con Stat Vital Signs Vital signs: Vital Signs - 8 hr 07/05/24 19:39 07/05/24 19:50 07/05/24 19:51 Temperature 97.5 F L Pulse Rate 60 59 L Respiratory Rate 17 Blood Pressure 114/62 Pulse Oximetry 95 93 Oxygen Delivery Method Room Air 07/05/24 19:51 07/05/24 20:00 07/05/24 20:00 Temperature Pulse Rate 58 L 63 Respiratory Rate Blood Pressure 124/68 Pulse Oximetry 95 96 Oxygen Delivery Method 07/05/24 20:27 07/05/24 20:27 07/05/24 20:30 Temperature Pulse Rate 60 Respiratory Rate Blood Pressure 133/63 143/67 H Pulse Oximetry 96 Oxygen Delivery Method 07/05/24 20:30 07/05/24 20:53 07/05/24 20:54 Temperature Pulse Rate 61 Respiratory Rate 18 Blood Pressure 108/54 L Pulse Oximetry 95 92 Oxygen Delivery Method 07/05/24 20:54 07/05/24 21:00 07/05/24 21:01 Temperature Pulse Rate 61 57 L Respiratory Rate 16 Blood Pressure 130/60 Pulse Oximetry 94 95 Oxygen Delivery Method 07/05/24 21:01 07/05/24 21:30 07/05/24 21:31 Temperature Pulse Rate 60 60 Respiratory Rate Blood Pressure 120/58 L Pulse Oximetry 95 97 Oxygen Delivery Method 07/05/24 21:31 Temperature Pulse Rate 60 Respiratory Rate 16 Blood Pressure Pulse Oximetry 96 Oxygen Delivery Method Medical Decision Making Medical Records Medical records reviewed: Yes I reviewed the patient's medical records. Imaging Data Extremity x-ray #1: Radiologist's Impression: PROCEDURE: CT CERVICAL SPINE WO CON INDICATIONS: fall on blood thinners TECHNIQUE: Noncontrast 3 mm thick sections acquired from the skull base to the T4 level. Sagittal and coronal reformats were then constructed. For radiation dose reduction, the following was used: automated exposure control, adjustment of mA and/or kV according to patient size. COMPARISON: [facility], CT, CT CERVICAL SPINE WO CON, 07/02/2024, 18:03. FINDINGS: Image quality: Mild motion artifact. Bones: No fractures or dislocations. Multilevel degenerative changes of the cervical spine. Straightening of the normal cervical lordosis. Mild anterolisthesis of C4 on C5 is stable. Decreased osseous mineralization. Visualized superior ribs are intact. Minimally displaced fracture of the left scapular body. Soft tissues: Prevertebral soft tissues are normal in thickness. No paravertebral hematomas. No apical pneumothoraces. Left chest wall pacemaker is partially visualized. IMPRESSION: No displaced cervical spine fracture or traumatic subluxation. Minimally displaced fracture of the left scapular body is partially visualized. CT scan - head: Radiologist's Impression: PROCEDURE: CT HEAD/BRAIN WO CON INDICATIONS: fall on blood thinners TECHNIQUE: Noncontrast 4.5 mm thick angled axial sections acquired from the foramen magnum to the vertex, with coronal and sagittal reformats. For radiation dose reduction, the following was used: automated exposure control, adjustment of mA and/or kV according to patient size. COMPARISON: [facility], CT, CT HEAD/BRAIN WO MIKE, 07/02/2024, 18:03. FINDINGS: Image quality: Diagnostic. CSF spaces: Basal cisterns are patent. No extra-axial fluid collections. The ventricles are symmetric in size and shape. Brain: No intracranial bleeds or masses. There is cerebral volume loss for age, with resultant ventricular and sulcal prominence. There are periventricular and deep white matter chronic small vessel ischemic changes. There is intracranial internal carotid artery atherosclerosis. Skull and face: Left scalp tamiko. Calvarium and visualized facial bones appear intact, without suspicious lesions. Sinuses: Visualized sinuses and mastoids are clear. IMPRESSION: No acute intracranial pathology. MDM Narrative Medical decision making narrative: Scapular fracture noted on the CT scan today however she was not particularly tender over this area. Unsure whether or not this was the fall from today or potentially a couple days ago. No respiratory distress. She can move her left arm with minimal discomfort. Has a skin tear to the right temporal that was fixed with Steri-Strips. Discharge patient home with instructions to follow-up with primary provider. Has been inpatient expressed understanding and agreement with plan. Discharge Plan Departure Patient Disposition: Home Clinical Impression: Skin tear Instructions: How to Prevent Falls Activity Restrictions/Additional Instructions: You can put topical antibiotic ointment over the skin tear. Ice may be helpful as well. Pressure if it starts to have any bleeding. Contact her primary doctor for a follow-up. Prescriptions: No Action clonazepam 0.5 mg tablet 0.5 mg PO DAILY duloxetine 20 mg capsule,delayed release(DR/EC) PO Creon 24,000-76,000 -120,000 unit capsule,delayed release(DR/EC) PO ferrous sulfate [FeroSul] 325 mg (65 mg iron) tablet 325 mg PO BID CA PANTOTHENATE/FOLIC ACID/VIT (MULTIVITAMIN) 1 tab PO Q DAY Qty: 0 AMINOBENZOIC ACID/BIOTIN/CA (#B COMPLEX) 1 cap PO Q DAY Qty: 0 lysine [L-Lysine] 500 MG tablet 500 mg PO Q DAY Qty: 0 dicyclomine 20 MG tablet 20 mg PO QID PRNQty: 0 VITAMIN D (Vitamin D3) 1,000 unit PO QDAY Qty: 0 estradiol 1 mg tablet See Rx Instructions .ROUTE .COMPLEX Qty: 90 3RF Dose Instruction: Take one tablet by mouth every day for hormone replacement therapy. Rx Instructions: Take one tablet by mouth every day for hormone replacement therapy. metoprolol succinate 25 mg tablet extended release 24 hr 12.5 mg PO DAILY Eliquis 5 mg tablet 5 mg PO BID alendronate [Fosamax] PO Hold Instructions: Home Medication placed on hold at Doctor's office estradiol 0.01 % (0.1 mg/gram) cream 1 g vaginal 2XW Qty: 42.5 1RF Rx Instructions: Apply externally nightly for 2 weeks then twice weekly ondansetron 4 mg tablet,disintegrating 4 mg PO Q8H PRN (Reason: nausea and vomiting) Qty: 20 0RF mecobalamin (vitamin B12) 5,000 mcg tablet,disintegrating PO amiodarone 200 mg tablet 200 mg PO DAILY atorvastatin 10 mg tablet 10 mg PO DAILY azelastine 137 mcg (0.1 %) aerosol,spray 2 spray intranasal BID Rx Instructions: administer into each nostril diclofenac sodium 1 % gel 2 g topical QID Rx Instructions: apply to single elbow, wrist or hand; for hand includes palm/fingers/back of hand esomeprazole magnesium [Nexium] 40 mg capsule,delayed release(DR/EC) 40 mg PO DAILY fluticasone propionate [Flonase Allergy Relief] 50 mcg/actuation spray,suspension 1 spray intranasal BID Rx Instructions: administer into each nostril levothyroxine 150 mcg capsule 150 mcg PO DAILY lidocaine 5 % adhesive patch,medicated 1 patch topical DAILY Rx Instructions: leave on most painful area for up to 12 hrs loratadine 10 mg tablet 10 mg PO DAILY magnesium oxide 400 mg magnesium tablet 400 mg PO DAILY torsemide 20 mg tablet 20 mg PO DAILY alpha lipoic acid 600 mg capsule 600 mg PO DAILY acetaminophen [Tylenol 8 Hour] 650 mg tablet extended release 650 mg PO Q12H Referrals: Ehsan Storm MD [Primary Care Provider] - Stand Alone Forms: Patient Portal/API
== END 2024-07-05 21:51 | disposition home or self-care (01) ==
PROVIDERS: Emergency Provider Emergency Medicine; PCP Family Medicine
DX: S01.81XA Laceration without foreign body of other part of head, initial encounter (principal); W19.XXXA Unspecified fall, initial encounter; R29.6 Repeated falls; I48.91 Unspecified atrial fibrillation; Z79.01 Long term (current) use of anticoagulants; Z79.899 Other long term (current) drug therapy
CPT/HCPCS: 70450; 72125; 99283; 99284

== ENCOUNTER 2024-07-30 16:27 | Emergency (ER) | payer MEDICARE, BC, SELFPAY ==
[2024-07-30 16:37] VITALS: BP 143/66; PULSE 62; RESP 17; TEMP 36.4; O2SAT 95; BMI 25.2
--- NOTE | 2024-07-30 16:44 | DI.CT.S_ITS ---
PROCEDURE: CT HEAD/BRAIN WO CON INDICATIONS: fall, hit head, thinners TECHNIQUE: Noncontrast 4.5 mm thick angled axial sections acquired from the foramen magnum to the vertex, with coronal and sagittal reformats. For radiation dose reduction, the following was used: automated exposure control, adjustment of mA and/or kV according to patient size. COMPARISON: [facility], CT, CT HEAD/BRAIN WO CON, 07/05/2024, 20:19. [facility], CT, CT HEAD/BRAIN WO CON, 07/02/2024, 18:03. FINDINGS: Image quality: Diagnostic. CSF spaces: Basal cisterns are patent. No extra-axial fluid collections. The ventricles are symmetric in size and shape. Brain: No acute intracranial hemorrhage or mass effect. There is cerebral volume loss for age, with resultant ventricular and sulcal prominence. There are periventricular and deep white matter chronic small vessel ischemic changes. There is intracranial internal carotid artery atherosclerosis. Skull and face: Calvarium and visualized facial bones appear intact, without suspicious lesions. Sinuses: Visualized sinuses and mastoids are clear. IMPRESSION: No acute intracranial pathology. Approved by: Joseph Resendiz M.D. on 07/30/2024 at 17:15
--- NOTE | 2024-07-30 16:44 | DI.CT.S_ITS ---
PROCEDURE: CT CERVICAL SPINE WO CON INDICATIONS: fall, hit head, thinners TECHNIQUE: Noncontrast 3 mm thick sections acquired from the skull base to the T4 level. Sagittal and coronal reformats were then constructed. For radiation dose reduction, the following was used: automated exposure control, adjustment of mA and/or kV according to patient size. COMPARISON: [facility], CT, CT CERVICAL SPINE WO CON, 07/05/2024, 20:19. [facility], CT, CT CERVICAL SPINE WO CON, 07/02/2024, 18:03. FINDINGS: Image quality: Excellent. Bones: No acute fractures or dislocations. Visualized superior ribs are intact. Mild multilevel degenerative spondylolisthesis. Multilevel disc space narrowing and degenerative endplate changes. Multilevel uncovertebral joint and facet hypertrophy. Generalized osteopenia. Healing fracture of the left scapular body is partially imaged. Soft tissues: Prevertebral soft tissues are normal in thickness. No paravertebral hematomas. No apical pneumothoraces. Right chest Port-A-Cath and left chest cardiac pacemaker partially imaged. 5 mm nodule is seen at the left upper lobe (2/63) IMPRESSION: 1. No acute displaced fracture or traumatic subluxation. 2. Healing left scapular body fracture is partially imaged. Approved by: Joseph Resendiz M.D. on 07/30/2024 at 17:19
[2024-07-30 21:01] VITALS: BP 194/84; PULSE 66; O2SAT 95
[2024-07-30 21:03] VITALS: BP 169/77; PULSE 63; O2SAT 98
--- NOTE | 2024-07-30 21:17 | ED_ITS ---
HPI - Fall General Chief Complaint: Fall Stated Complaint: Fall, head laceration on eloquist Time Seen by Provider: 07/30/24 21:08 Source: patient Mode of arrival: Wheelchair History of Present Illness HPI Narrative: 79-year-old female. Is on Eliquis. Is here for evaluation of injuries that she sustained when she lost her balance and fell earlier today. She did hit her head. No loss of consciousness. She states she has neuropathy in her feet did not sometimes when she loses her balance she was a difficult time telling where she was or where she was standing which is what happened this evening. No neck pain. No extremity pain. Does have a laceration to her left ear. She fell several days ago causing some bruising under her eyes and also laceration to her head. Related Data Home Medications Medication Instructions Recorded Confirmed AMINOBENZOIC ACID/BIOTIN/CA (#B 1 cap PO Q DAY ##0 10/11/11 05/21/24 COMPLEX) CA PANTOTHENATE/FOLIC ACID/VIT 1 tab PO Q DAY ##0 10/11/11 05/21/24 (MULTIVITAMIN) VITAMIN D (Vitamin D3) 1,000 unit PO QDAY ##0 10/11/11 05/21/24 dicyclomine 20 mg tablet 20 mg PO QID PRN ##0 10/11/11 05/21/24 lysine 500 mg tablet (L-Lysine) 500 mg PO Q DAY ##0 10/11/11 05/21/24 mecobalamin (vitamin B12) 5,000 mcg PO 07/18/18 05/21/24 mcg disintegrating tablet alendronate [Fosamax] PO 11/10/21 05/21/24 apixaban 5 mg tablet (Eliquis) 5 mg PO BID 11/10/21 05/21/24 metoprolol succinate 25 mg 12.5 mg PO DAILY 11/10/21 05/21/24 tablet,extended release 24 hr acetaminophen 650 mg 650 mg PO Q12H 05/21/24 05/21/24 tablet,extended release (Tylenol 8 Hour) alpha lipoic acid 600 mg capsule 600 mg PO DAILY 05/21/24 05/21/24 amiodarone 200 mg tablet 200 mg PO DAILY 05/21/24 05/21/24 atorvastatin 10 mg tablet 10 mg PO DAILY 05/21/24 05/21/24 azelastine 137 mcg (0.1 %) nasal 2 spray intranasal BID 05/21/24 05/21/24 spray diclofenac sodium 1 % topical gel 2 g topical QID 05/21/24 05/21/24 esomeprazole magnesium 40 mg 40 mg PO DAILY 05/21/24 05/21/24 capsule,delayed release (Nexium) fluticasone propionate 50 1 spray intranasal BID 05/21/24 05/21/24 mcg/actuation nasal spray,suspension (Flonase Allergy Relief) levothyroxine 150 mcg capsule 150 mcg PO DAILY 05/21/24 05/21/24 lidocaine 5 % topical patch 1 patch topical DAILY 05/21/24 05/21/24 loratadine 10 mg tablet 10 mg PO DAILY 05/21/24 05/21/24 magnesium oxide 400 mg PO DAILY 05/21/24 05/21/24 torsemide 20 mg tablet 20 mg PO DAILY 05/21/24 05/21/24 clonazepam 0.5 mg tablet 0.5 mg PO DAILY 06/05/24 06/05/24 duloxetine 20 mg capsule,delayed mg PO 06/05/24 06/05/24 release ferrous sulfate 325 mg (65 mg 325 mg PO BID 06/05/24 06/05/24 iron) tablet (FeroSul) uaxwve-[id number]-ftseyto cap PO 06/05/24 06/05/24 24,000-76,000-120,000 unit capsule,delayed rel (Creon) Previous Rx's Medication Instructions Recorded estradiol 1 mg tablet See Rx Instructions .Route 09/13/21 .COMPLEX #90 tabs estradiol 0.01% (0.1 mg/gram) 1 g vaginal 2XW Vaginal atrophy 11/10/21 vaginal cream #42.5 grams ondansetron 4 mg disintegrating 4 mg PO Q8H PRN nausea and 06/15/22 tablet vomiting #20 tabs amoxicillin 875 mg-potassium 1 tab PO BID 7 days #14 tabs 07/30/24 clavulanate 125 mg tablet Allergies Allergy/AdvReac Type Severity Reaction Status Date / Time codeine [CODEINE] Allergy Unknown Verified 07/30/24 16:37 zolpidem Allergy altered Verified 07/30/24 16:37 thoughts Review of Systems Review of Systems Narrative: See HPI Patient History Medical History Atrial fibrillation Pancreatic cancer (~08/2018) Surgical History History of bladder suspension procedure Status post vaginal hysterectomy (~1994) Status post colonoscopy (09/20/14) Social History Smoking Status: Never smoker Smoking Status: Never smoker alcohol intake frequency: a few times a week Substance Use Type: does not use Exam Initial Vital Signs Initial Vital Signs: Vital Signs Temperature 97.6 F 07/30/24 16:37 Pulse Rate 62 07/30/24 16:37 Respiratory Rate 17 07/30/24 16:37 Blood Pressure 143/66 H 07/30/24 16:37 Pulse Oximetry 95 07/30/24 16:37 Oxygen Delivery Method Room Air 07/30/24 16:37 Const General: cooperative, comfortable and No ill appearing HENMT Head: normal to inspection and normocephalic Ears: TM normal on the left, EAC's normal and other (2 cm laceration to auricle of left ear) Resp Effort & Inspection: normal respiratory effort Cardio Rate: regular rate Skin Other: 2 cm laceration to the auricle of the left ear. No active bleeding but it is somewhat oozing. Neuro General: patient alert, patient awake, patient oriented x3 and moves all extremities Extrem General: normal to inspection and capillary refill normal Procedures Laceration Repair Laceration 1: Site: other (Ear) Side (If applicable): left Size (cm): 2 Description: linear Depth: simple, single layer Local Anesthetic: lidocaine 1% Amount of anesthesia used (mL): 3 Pre-repair: deep structures intact Skin layer closed with: nylon Skin layer suture size: 4-0 Number of sutures: 6 Technique: simple, interrupted Course Orders Ordered: Discontinued Medications Amoxicillin/Clavulanate Potassium (Amoxicillin/Clav 875/125 Mg) 1 tab PO NOW ONE Stop: 07/30/24 22:08 Last Admin: 07/30/24 22:13 Dose: 1 tab Documented By: CHRIS Bacitracin (Bacitracin Oint 0.9 Gm Pckt) 1 applic TOP NOW ONE Stop: 07/30/24 22:07 Last Admin: 07/30/24 22:13 Dose: 1 applic Documented By: CHRIS Lidocaine HCl (Lidocaine 1% 20 Ml) 20 ml INJ INTRA-OP ONE Stop: 07/30/24 21:19 Last Admin: 07/30/24 21:32 Dose: 20 ml Documented By: CHRIS Vital Signs Vital signs: Vital Signs - 8 hr 07/30/24 21:01 07/30/24 21:01 07/30/24 21:03 Pulse Rate 66 63 Blood Pressure 194/84 H Pulse Oximetry 95 98 Oxygen Delivery Method Room Air 07/30/24 21:03 07/30/24 21:30 07/30/24 21:30 Pulse Rate 60 Blood Pressure 169/77 H 192/79 H Pulse Oximetry 98 Oxygen Delivery Method 07/30/24 22:00 07/30/24 22:00 Pulse Rate 62 Blood Pressure 186/86 H Pulse Oximetry 96 Oxygen Delivery Method Room Air MDM - Fall Imaging Data CT - cervical spine: Radiologist's Impression: PROCEDURE: CT CERVICAL SPINE WO CON INDICATIONS: fall, hit head, thinners TECHNIQUE: Noncontrast 3 mm thick sections acquired from the skull base to the T4 level. Sagittal and coronal reformats were then constructed. For radiation dose reduction, the following was used: automated exposure control, adjustment of mA and/or kV according to patient size. COMPARISON: [facility], CT, CT CERVICAL SPINE WO CON, 07/05/2024, 20:19. [facility], CT, CT CERVICAL SPINE WO CON, 07/02/2024, 18:03. FINDINGS: Image quality: Excellent. Bones: No acute fractures or dislocations. Visualized superior ribs are intact. Mild multilevel degenerative spondylolisthesis. Multilevel disc space narrowing and degenerative endplate changes. Multilevel uncovertebral joint and facet hypertrophy. Generalized osteopenia. Healing fracture of the left scapular body is partially imaged. Soft tissues: Prevertebral soft tissues are normal in thickness. No paravertebral hematomas. No apical pneumothoraces. Right chest Port-A-Cath and left chest cardiac pacemaker partially imaged. 5 mm nodule is seen at the left upper lobe (2/63) IMPRESSION: 1. No acute displaced fracture or traumatic subluxation. 2. Healing left scapular body fracture is partially imaged. CT scan - head: Radiologist's Impression: PROCEDURE: CT HEAD/BRAIN WO CON INDICATIONS: fall, hit head, thinners TECHNIQUE: Noncontrast 4.5 mm thick angled axial sections acquired from the foramen magnum to the vertex, with coronal and sagittal reformats. For radiation dose reduction, the following was used: automated exposure control, adjustment of mA and/or kV according to patient size. COMPARISON: [facility], CT, CT HEAD/BRAIN WO CON, 07/05/2024, 20:19. [facility], CT, CT HEAD/BRAIN WO CON, 07/02/2024, 18:03. FINDINGS: Image quality: Diagnostic. CSF spaces: Basal cisterns are patent. No extra-axial fluid collections. The ventricles are symmetric in size and shape. Brain: No acute intracranial hemorrhage or mass effect. There is cerebral volume loss for age, with resultant ventricular and sulcal prominence. There are periventricular and deep white matter chronic small vessel ischemic changes. There is intracranial internal carotid artery atherosclerosis. Skull and face: Calvarium and visualized facial bones appear intact, without suspicious lesions. Sinuses: Visualized sinuses and mastoids are clear. IMPRESSION: No acute intracranial pathology. MDM Narrative Medical decision making narrative: CT scan show no fractures or any acute intracranial abnormalities. She does have a laceration to the auricle of her left ear. Does not appear that the cartilage is exposed. The laceration was closed as described above. Will place her on antibiotics because of the location of the wound. A pressure dressing was applied. Recommended that she follow-up with ENT for suture removal and also further evaluation. She was given return precautions and follow-up instructions. She expressed understanding and agreement plan. Discharge Plan Departure Patient Disposition: Home Clinical Impression: Laceration of ear Instructions: DI for Laceration Repair Activity Restrictions/Additional Instructions: Recommend that you continue to put topical antibiotic ointment over the laceration. You can shower like normal. The stitches will need to be removed in 7-10 days. Recommend you contact Dr. Lang at the ENT office of the number provided below. Return to the emergency department for new or worsening symptoms. Prescriptions: New amoxicillin-pot clavulanate 875-125 mg tablet 1 tab PO BID 7 Days Qty: 14 0RF No Action clonazepam 0.5 mg tablet 0.5 mg PO DAILY duloxetine 20 mg capsule,delayed release(DR/EC) PO Creon 24,000-76,000 -120,000 unit capsule,delayed release(DR/EC) PO ferrous sulfate [FeroSul] 325 mg (65 mg iron) tablet 325 mg PO BID CA PANTOTHENATE/FOLIC ACID/VIT (MULTIVITAMIN) 1 tab PO Q DAY Qty: 0 AMINOBENZOIC ACID/BIOTIN/CA (#B COMPLEX) 1 cap PO Q DAY Qty: 0 lysine [L-Lysine] 500 MG tablet 500 mg PO Q DAY Qty: 0 dicyclomine 20 MG tablet 20 mg PO QID PRNQty: 0 VITAMIN D (Vitamin D3) 1,000 unit PO QDAY Qty: 0 estradiol 1 mg tablet See Rx Instructions .ROUTE .COMPLEX Qty: 90 3RF Dose Instruction: Take one tablet by mouth every day for hormone replacement therapy. Rx Instructions: Take one tablet by mouth every day for hormone replacement therapy. metoprolol succinate 25 mg tablet extended release 24 hr 12.5 mg PO DAILY Eliquis 5 mg tablet 5 mg PO BID alendronate [Fosamax] PO Hold Instructions: Home Medication placed on hold at Doctor's office estradiol 0.01 % (0.1 mg/gram) cream 1 g vaginal 2XW Qty: 42.5 1RF Rx Instructions: Apply externally nightly for 2 weeks then twice weekly ondansetron 4 mg tablet,disintegrating 4 mg PO Q8H PRN (Reason: nausea and vomiting) Qty: 20 0RF mecobalamin (vitamin B12) 5,000 mcg tablet,disintegrating PO amiodarone 200 mg tablet 200 mg PO DAILY atorvastatin 10 mg tablet 10 mg PO DAILY azelastine 137 mcg (0.1 %) aerosol,spray 2 spray intranasal BID Rx Instructions: administer into each nostril diclofenac sodium 1 % gel 2 g topical QID Rx Instructions: apply to single elbow, wrist or hand; for hand includes palm/fingers/back of hand esomeprazole magnesium [Nexium] 40 mg capsule,delayed release(DR/EC) 40 mg PO DAILY fluticasone propionate [Flonase Allergy Relief] 50 mcg/actuation spray,suspension 1 spray intranasal BID Rx Instructions: administer into each nostril levothyroxine 150 mcg capsule 150 mcg PO DAILY lidocaine 5 % adhesive patch,medicated 1 patch topical DAILY Rx Instructions: leave on most painful area for up to 12 hrs loratadine 10 mg tablet 10 mg PO DAILY magnesium oxide 400 mg magnesium tablet 400 mg PO DAILY torsemide 20 mg tablet 20 mg PO DAILY alpha lipoic acid 600 mg capsule 600 mg PO DAILY acetaminophen [Tylenol 8 Hour] 650 mg tablet extended release 650 mg PO Q12H Referrals: Jacinto Lang MD [Physician] - Ehsan Storm MD [Primary Care Provider] - Stand Alone Forms: Patient Portal/API/Survey
[2024-07-30 21:30] VITALS: BP 192/79; PULSE 60; O2SAT 98
[2024-07-30] MEDS: LIDOCAINE 1% 20 ML INJ (21:32)
--- NOTE | 2024-07-30 21:33 | PC.NURSE ---
Lido will be administered by Dr. Marie
--- NOTE | 2024-07-30 21:49 | PC.NURSE ---
Dr. Marie at bedside to suture
[2024-07-30 22:00] VITALS: BP 186/86; PULSE 62; O2SAT 96
[2024-07-30] MEDS: AMOXICILLIN/CLAV 875/125 MG 1 TAB PO (22:13)
[2024-07-30] MEDS: BACITRACIN OINT 0.9 GM PCKT 1 APPLIC TOP (22:13)
== END 2024-07-30 22:32 | disposition home or self-care (01) ==
PROVIDERS: Emergency Provider Emergency Medicine; PCP Family Medicine
DX: S01.312A Laceration without foreign body of left ear, initial encounter (principal); W18.30XA Fall on same level, unspecified, initial encounter; Z79.01 Long term (current) use of anticoagulants
CPT/HCPCS: 12011; 70450; 72125; 99283; 99284

== ENCOUNTER 2024-10-16 03:17 | Emergency (ER) | payer MEDICARE, BC, SELFPAY ==
[2024-10-16] VITALS (8 sets, daily range): BP systolic 85–95; BP diastolic 44–48; PULSE 60–63; RESP 16–18; TEMP 36.1–36.6; O2SAT 93–99; BMI 24.4
--- NOTE | 2024-10-16 03:23 | DI.CT.S_ITS ---
PROCEDURE: CT HEAD/BRAIN WO CON INDICATIONS: HEAD INJ ON THINNERS TECHNIQUE: Noncontrast 4.5 mm thick angled axial sections acquired from the foramen magnum to the vertex, with coronal and sagittal reformats. For radiation dose reduction, the following was used: automated exposure control, adjustment of mA and/or kV according to patient size. COMPARISON: [facility], CT, CT HEAD/BRAIN WO CON, 07/30/2024, 16:51. FINDINGS: Image quality: Diagnostic. CSF spaces: Basal cisterns are patent. No extra-axial fluid collections. The ventricles are symmetric in size and shape. Brain: No intracranial bleeds or masses. There is cerebral volume loss for age, with resultant ventricular and sulcal prominence. There are periventricular and deep white matter chronic small vessel ischemic changes. There is intracranial internal carotid artery atherosclerosis. Skull and face: Calvarium and visualized facial bones appear intact, without suspicious lesions. Sinuses: Visualized sinuses and mastoids are clear. IMPRESSION: No acute intracranial pathology. No discrepancies from preliminary reading. Dictated by: Triston Chandler M.D. on 10/16/2024 at 8:21 Approved by: Triston Chandler M.D. on 10/16/2024 at 8:22
--- NOTE | 2024-10-16 03:24 | ED.HEATRA ---
HPI - Head Injury General Chief complaint: Trauma Stated complaint: head injury on blood thinners Time Seen by Provider: 10/16/24 03:18 History of Present Illness HPI Narrative: 79-year-old female presents for evaluation of head injury. She is on Eliquis for atrial fibrillation. Patient states that she was bending over to pick something off the ground, when she straightened up she hit her head on the corner of a cabinet. Denies LOC. UTD on tetanus Related Data Home Medications Medication Instructions Recorded Confirmed AMINOBENZOIC ACID/BIOTIN/CA (#B 1 cap PO Q DAY ##0 10/11/11 05/21/24 COMPLEX) CA PANTOTHENATE/FOLIC ACID/VIT 1 tab PO Q DAY ##0 10/11/11 05/21/24 (MULTIVITAMIN) VITAMIN D (Vitamin D3) 1,000 unit PO QDAY ##0 10/11/11 05/21/24 dicyclomine 20 mg tablet 20 mg PO QID PRN ##0 10/11/11 05/21/24 lysine 500 mg tablet (L-Lysine) 500 mg PO Q DAY ##0 10/11/11 05/21/24 mecobalamin (vitamin B12) 5,000 mcg PO 07/18/18 05/21/24 mcg disintegrating tablet alendronate [Fosamax] PO 11/10/21 05/21/24 apixaban 5 mg tablet (Eliquis) 5 mg PO BID 11/10/21 05/21/24 metoprolol succinate 25 mg 12.5 mg PO DAILY 11/10/21 05/21/24 tablet,extended release 24 hr acetaminophen 650 mg 650 mg PO Q12H 05/21/24 05/21/24 tablet,extended release (Tylenol 8 Hour) alpha lipoic acid 600 mg capsule 600 mg PO DAILY 05/21/24 05/21/24 amiodarone 200 mg tablet 200 mg PO DAILY 05/21/24 05/21/24 atorvastatin 10 mg tablet 10 mg PO DAILY 05/21/24 05/21/24 azelastine 137 mcg (0.1 %) nasal 2 spray intranasal BID 05/21/24 05/21/24 spray diclofenac sodium 1 % topical gel 2 g topical QID 05/21/24 05/21/24 esomeprazole magnesium 40 mg 40 mg PO DAILY 05/21/24 05/21/24 capsule,delayed release (Nexium) fluticasone propionate 50 1 spray intranasal BID 05/21/24 05/21/24 mcg/actuation nasal spray,suspension (Flonase Allergy Relief) levothyroxine 150 mcg capsule 150 mcg PO DAILY 05/21/24 05/21/24 lidocaine 5 % topical patch 1 patch topical DAILY 05/21/24 05/21/24 loratadine 10 mg tablet 10 mg PO DAILY 05/21/24 05/21/24 magnesium oxide 400 mg PO DAILY 05/21/24 05/21/24 torsemide 20 mg tablet 20 mg PO DAILY 05/21/24 05/21/24 clonazepam 0.5 mg tablet 0.5 mg PO DAILY 06/05/24 06/05/24 duloxetine 20 mg capsule,delayed mg PO 06/05/24 06/05/24 release ferrous sulfate 325 mg (65 mg 325 mg PO BID 06/05/24 06/05/24 iron) tablet (FeroSul) wzyrus-hrvynhnc-ergeaor cap PO 06/05/24 06/05/24 24,000-76,000-120,000 unit capsule,delayed rel (Creon) Previous Rx's Medication Instructions Recorded estradiol 1 mg tablet See Rx Instructions .Route 09/13/21 .COMPLEX #90 tabs estradiol 0.01% (0.1 mg/gram) 1 g vaginal 2XW Vaginal atrophy 11/10/21 vaginal cream #42.5 grams ondansetron 4 mg disintegrating 4 mg PO Q8H PRN nausea and 06/15/22 tablet vomiting #20 tabs Allergies Allergy/AdvReac Type Severity Reaction Status Date / Time codeine [CODEINE] Allergy Unknown Verified 07/30/24 16:37 zolpidem Allergy altered Verified 07/30/24 16:37 thoughts Patient History Medical History Atrial fibrillation Pancreatic cancer (~08/2018) Surgical History History of bladder suspension procedure Status post vaginal hysterectomy (~1994) Status post colonoscopy (09/20/14) Social History Smoking Status: Never smoker Smoking Status: Never smoker alcohol intake frequency: a few times a week Exam Initial Vital Signs Initial Vital Signs: Vital Signs Pulse Oximetry 93 10/16/24 03:23 Const: Awake, alert, no acute distress, nontoxic appearing HEENT: superior scalp 3cm laceration. PERRL, EOMI Skin: Warm, Dry, 3cm linear scalp laceration Neuro: AO x3, CN II-XII grossly intact, moves all extremities Procedures Laceration Repair Laceration 1: Site: scalp Size (cm): 5 Description: linear Depth: simple, single layer Local Anesthetic: other anesthetic (LIDOCAINE-PRILOCAINE CREAM) Pre-repair: wound explored and irrigated extensively Skin layer closed with: tamiko Number of sutures: 7 Course Orders Ordered: ED Orders 10/16/24 03:23 CT head/brain wo con Stat 10/16/24 03:30 CT cervical spine wo con Stat Discontinued Medications Lidocaine/Prilocaine (Lidocaine/Prilocaine 5 Gm) 5 gm TOP NOW ONE Stop: 10/16/24 03:24 Last Admin: 10/16/24 03:35 Dose: 5 gm Vital Signs Vital signs: Vital Signs - 8 hr 10/16/24 03:23 10/16/24 03:24 10/16/24 03:24 Temperature Pulse Rate 60 Respiratory Rate Blood Pressure 85/44 L Pulse Oximetry 93 94 Oxygen Delivery Method 10/16/24 03:26 10/16/24 03:26 10/16/24 03:27 Temperature 96.9 F L Pulse Rate 60 63 Respiratory Rate 16 Blood Pressure 95/46 L 95/46 L Pulse Oximetry 97 99 Oxygen Delivery Method Room Air 10/16/24 03:48 10/16/24 03:49 10/16/24 03:49 Temperature Pulse Rate 60 61 Respiratory Rate Blood Pressure 92/48 L Pulse Oximetry 94 95 Oxygen Delivery Method 10/16/24 04:00 10/16/24 04:30 Temperature 98 F Pulse Rate 60 63 Respiratory Rate 16 18 Blood Pressure Pulse Oximetry 96 97 Oxygen Delivery Method Room Air MDM - Head Injury MDM Narrative Medical decision making narrative: Ground level fall with scalp laceration. Wound initially appeared to be 3 cm in length, however after it was cleaned it appears to be closer to 5 cm in length. It is linear and not actively bleeding. Lidocaine cream applied for pain control. CT brain negative for acute findings. Wound repaired per procedure note. Patient states that she falls frequently for no discernible reason. She is actively working with her primary care doctor and a neurologist to get to the bottom of why she keeps falling. She says she attributes her falls to her chronic neuropathy. Discharge Plan Departure Patient Disposition: Home Clinical Impression: Laceration of scalp, Fall as cause of accidental injury at home as place of occurrence Instructions: DI for Laceration Repair -- Tamiko Activity Restrictions/Additional Instructions: Your head CT showed no fractures or bleeds. Keep your tamiko clean and dry. They will need to be removed in the next 7-10 days. Continue to work with your doctor and neurologist to decrease your falling. Prescriptions: No Action clonazepam 0.5 mg tablet 0.5 mg PO DAILY duloxetine 20 mg capsule,delayed release(DR/EC) PO Creon 24,000-76,000 -120,000 unit capsule,delayed release(DR/EC) PO ferrous sulfate [FeroSul] 325 mg (65 mg iron) tablet 325 mg PO BID CA PANTOTHENATE/FOLIC ACID/VIT (MULTIVITAMIN) 1 tab PO Q DAY Qty: 0 AMINOBENZOIC ACID/BIOTIN/CA (#B COMPLEX) 1 cap PO Q DAY Qty: 0 lysine [L-Lysine] 500 MG tablet 500 mg PO Q DAY Qty: 0 dicyclomine 20 MG tablet 20 mg PO QID PRNQty: 0 VITAMIN D (Vitamin D3) 1,000 unit PO QDAY Qty: 0 estradiol 1 mg tablet See Rx Instructions .ROUTE .COMPLEX Qty: 90 3RF Dose Instruction: Take one tablet by mouth every day for hormone replacement therapy. Rx Instructions: Take one tablet by mouth every day for hormone replacement therapy. metoprolol succinate 25 mg tablet extended release 24 hr 12.5 mg PO DAILY Eliquis 5 mg tablet 5 mg PO BID alendronate [Fosamax] PO Hold Instructions: Home Medication placed on hold at Doctor's office estradiol 0.01 % (0.1 mg/gram) cream 1 g vaginal 2XW Qty: 42.5 1RF Rx Instructions: Apply externally nightly for 2 weeks then twice weekly ondansetron 4 mg tablet,disintegrating 4 mg PO Q8H PRN (Reason: nausea and vomiting) Qty: 20 0RF mecobalamin (vitamin B12) 5,000 mcg tablet,disintegrating PO amiodarone 200 mg tablet 200 mg PO DAILY atorvastatin 10 mg tablet 10 mg PO DAILY azelastine 137 mcg (0.1 %) aerosol,spray 2 spray intranasal BID Rx Instructions: administer into each nostril diclofenac sodium 1 % gel 2 g topical QID Rx Instructions: apply to single elbow, wrist or hand; for hand includes palm/fingers/back of hand esomeprazole magnesium [Nexium] 40 mg capsule,delayed release(DR/EC) 40 mg PO DAILY fluticasone propionate [Flonase Allergy Relief] 50 mcg/actuation spray,suspension 1 spray intranasal BID Rx Instructions: administer into each nostril levothyroxine 150 mcg capsule 150 mcg PO DAILY lidocaine 5 % adhesive patch,medicated 1 patch topical DAILY Rx Instructions: leave on most painful area for up to 12 hrs loratadine 10 mg tablet 10 mg PO DAILY magnesium oxide 400 mg magnesium tablet 400 mg PO DAILY torsemide 20 mg tablet 20 mg PO DAILY alpha lipoic acid 600 mg capsule 600 mg PO DAILY acetaminophen [Tylenol 8 Hour] 650 mg tablet extended release 650 mg PO Q12H Referrals: Ehsan Storm MD [Primary Care Provider] - Stand Alone Forms: Patient Portal/API/Survey
--- NOTE | 2024-10-16 03:30 | DI.CT.S_ITS ---
PROCEDURE: CT CERVICAL SPINE WO CON INDICATIONS: GLF, NECK PAIN TECHNIQUE: Noncontrast 3 mm thick sections acquired from the skull base to the T4 level. Sagittal and coronal reformats were then constructed. For radiation dose reduction, the following was used: automated exposure control, adjustment of mA and/or kV according to patient size. COMPARISON: [facility], CT, CT CERVICAL SPINE WO CON, 07/30/2024, 16:51. FINDINGS: Image quality: Excellent. Bones: No fractures or dislocations. Degenerative endplate changes throughout cervical spine more notably at C4-5 and C5-6 levels. Stable 2 mm anterolisthesis of C4 on C5. Visualized superior ribs are intact. Soft tissues: Prevertebral soft tissues are normal in thickness. No paravertebral hematomas. No apical pneumothoraces. IMPRESSION: 1. No displaced fracture or traumatic subluxation. 2. Degenerative disc disease throughout cervical spine not significantly changed from prior study. No discrepancies from preliminary reading. Dictated by: Triston Chandler M.D. on 10/16/2024 at 8:22 Approved by: Triston Chandler M.D. on 10/16/2024 at 8:23
[2024-10-16] MEDS: LIDOCAINE/PRILOCAINE 5 GM TOP (03:35)
== END 2024-10-16 04:46 | disposition home or self-care (01) ==
PROVIDERS: Emergency Provider Emergency Medicine; PCP Family Medicine
DX: S01.01XA Laceration without foreign body of scalp, initial encounter (principal); I48.91 Unspecified atrial fibrillation; Z79.01 Long term (current) use of anticoagulants; W22.8XXA Striking against or struck by other objects, initial encounter; Z85.07 Personal history of malignant neoplasm of pancreas; Y92.009 Unspecified place in unspecified non-institutional (private) residence as the place of occurrence of the external cause; S00.211A Abrasion of right eyelid and periocular area, initial encounter; M54.2 Cervicalgia; R07.89 Other chest pain; R05.3 Chronic cough
CPT/HCPCS: 12002; 70450; 72125; 99284